=== PATIENT | female | born 1950 | race Caucasian/White ===

== ENCOUNTER 2018-10-19 06:05 | Day surgery (SDC) | payer MEDICARE ==
[2018-10-18 17:15] VITALS: BMI 34.3
[2018-10-19] MEDS ORDERED: Ondansetron ODT 4 MG TAB ONE (08:10)
--- NOTE | 2018-10-19 10:28 | OP ---
DATE OF PROCEDURE: 10/19/2018 PROCEDURES PERFORMED: Esophagogastroduodenoscopy with biopsy. PREOPERATIVE DIAGNOSES: Recurrent nausea and vomiting and chronic diarrhea. DESCRIPTION OF PROCEDURE: Informed consent was obtained from the patient. She was sedated with general anesthesia. The bite block was placed and the endoscope was advanced easily to the jejunum. The esophagus was normal. The GE junction was normal. The stomach had surgical changes consistent with an antrectomy, most likely Billroth II. There was erosive gastritis in the body of the stomach. Biopsies were obtained to rule out H. pylori. Retroflexed views in the stomach revealed a moderate amount of fibrous vegetable material in the fundus. The anastomosis was wide open. Both limbs of the small intestine were intubated and the mucosa appeared unremarkable. Small bowel biopsies were obtained to rule out celiac disease. IMPRESSION: 1. Erosive gastritis, biopsied to rule out Helicobacter pylori. 2. There was a 7 mm polyp along the anastomosis line, which likely is a granulation reaction related to the staple line or suture. Biopsy was obtained from this to rule out a neoplastic process. 3. Fibrous vegetable material in the fundus of the stomach. 4. History of antrectomy with anatomy most consistent with Billroth II anastomosis. The anastomosis is wide open. Both small bowel limbs were intubated and had unremarkable mucosa. Small bowel biopsies were obtained to rule out celiac disease. RECOMMENDATIONS: 1. Await histopathology. 2. Continue proton pump inhibitor. 3. CT scan of the abdomen and pelvis with oral and IV contrast. 4. Low-fiber diet. 5. Follow up in GI clinic. Job ID: [id number]
[2018-10-19] MEDS ORDERED: Morphine 2 MG/ML SYRINGE ONE ×2 (11:10→11:19)
[2018-10-19] MEDS ORDERED: ISOVUE-370 76%-LOCM 1 ML ONE (13:04)
[2018-10-19] MEDS ORDERED: Iopamidol 370 76% 50 ML VIAL FS ONE (13:04)
--- NOTE | 2018-10-19 13:57 | CT ---
CT OF THE ABDOMEN AND PELVIS WITH IV CONTRAST INDICATION: Status post EGD; concern for pancreatitis COMPARISON: CT abdomen pelvis dated November 06, 2016 FINDINGS: ABDOMEN: Lung bases: There is mild subsegmental atelectasis within the lingula. There are healed deformities i nvolving left posterior eighth through 11th ribs. Liver: There is diffuse fatty infiltration. Gallbladder: Surgically absent Pancreas: Mild fatty atrophy within the pancreatic head. No surrounding peripancreatic inflammatory s tranding or drainable fluid collection. Adrenal glands: There is stable mild hypertrophy of the left adrenal gland. Right adrenal glands norm al appearing. Spleen: Normal. Kidneys: Normal. Retroperitoneum of the upper abdomen: There are moderate calcific lesions involving abdominal pelvic vasculature. Pelvis: Small and large bowel: The appendix is enlarged measuring 8 mm. There is enhancement of the mucosa of the appendix. There is suggestion of mild periappendiceal fat stranding, particularly on image 63 of series 2. There is postsurgical change of a partial gastrectomy and gastroenteric anastomosis. The remaining visualized partially opacified colon and small bowel appear within normal limits. Bladder: Normal. Rectal and perirectal soft tissues:Normal. Reproductive structures: Normal. Free fluid in pelvis: No free fluid is evident. Lymphadenopathy pelvis: No lymphadenopathy is evident. Osseous structures: No acute osseous abnormality. No destructive osteolytic or osteoblastic lesion i s identified. There is scattered degenerative and osteoarthritic changes. There is stable superior endplate compression deformity of T12. IMPRESSION: 1. Enlargement of the appendix with mild periappendiceal fat stranding is suspicious for acute append icitis. Recommend correlation with the clinical exam. 2. No peripancreatic inflammatory stranding or drainable peripancreatic fluid collection demonstrated . The lack of these findings on CT does not exclude noncomplicated pancreatitis. 3. Fatty liver 4. Stable remote superior endplate compression deformity at T12 with multiple healed posterior left-s ided rib fractures. 5. Findings called to Dr. Mccormick answering service at 1:51 PM on October 19, 2018
[2018-10-19] MEDS ORDERED: PROPOFOL 200 MG/20 ML VIAL ONE (15:31)
[2018-10-19] MEDS ORDERED: Succinylcholine Chloride 20 MG/ML 10 ml SYRINGE FS ONE (15:31)
[2018-10-19] MEDS ORDERED: Lidocaine 1% PF 5 ML VIAL ONE (15:31)
[2018-10-19] MEDS ORDERED: Ondansetron PF 4 MG/2 ML Vial ONE (15:31)
== END 2018-10-19 14:00 | disposition home or self-care (01) ==
LOC: SDC 06:05
PROVIDERS: ATTEND Internal Medicine Gastroenterology
PROC: 0DB98ZZ Excision of Duodenum, Via Natural or Artificial Opening Endoscopic (ICD-10-PCS; principal; 2018-10-19)
PROC: 0DB78ZX Excision of Stomach, Pylorus, Via Natural or Artificial Opening Endoscopic, Diagnostic (ICD-10-PCS; 2018-10-19)
DX: K31.9 Disease of stomach and duodenum, unspecified (principal); K29.60 Other gastritis without bleeding; K52.9 Noninfective gastroenteritis and colitis, unspecified; K31.7 Polyp of stomach and duodenum; K76.0 Fatty (change of) liver, not elsewhere classified; K21.9 Gastro-esophageal reflux disease without esophagitis; F32.9 Major depressive disorder, single episode, unspecified; I11.0 Hypertensive heart disease with heart failure; I50.9 Heart failure, unspecified; F99 Mental disorder, not otherwise specified; K22.70 Barrett's esophagus without dysplasia; F17.210 Nicotine dependence, cigarettes, uncomplicated; J44.9 Chronic obstructive pulmonary disease, unspecified; Z79.82 Long term (current) use of aspirin; Z79.891 Long term (current) use of opiate analgesic; Z79.899 Other long term (current) drug therapy; Z88.1 Allergy status to other antibiotic agents; Z88.2 Allergy status to sulfonamides; Z88.5 Allergy status to narcotic agent; Z90.3 Acquired absence of stomach [part of]
CPT/HCPCS: 36415; 74177; 82565; 88305; 88312; 93005; 93010; J2001; J2270; J2405; J2704; Q0162; Q9966; Q9967

== ENCOUNTER 2020-03-29 00:05 | Inpatient (IN) | payer MEDICARE ==
[2020-03-29] MEDS ORDERED: Morphine 4 MG/ML VIAL ONE (00:37)
[2020-03-29] MEDS ORDERED: Ondansetron PF 4 MG/2 ML Vial ONE (00:37)
[2020-03-29] MEDS ORDERED: Ondansetron ODT 4 MG TAB SL PRN (02:30)
[2020-03-29] MEDS ORDERED: Lactated Ringer's 1,000 ML IV SCH (02:30)
[2020-03-29 02:35] VITALS: BMI 37.3
[2020-03-29] MEDS: Morphine 2 MG/ML VIAL SLOW IVP PRN ×7 (02:39→20:27)
[2020-03-29] MEDS: Ondansetron PF 4 MG/2 ML Vial IVP PRN ×4 (02:39→20:27)
[2020-03-29] MEDS ORDERED: Piperacillin/Tazobactam 4.5 GM in Sodium Chloride 0.9% 100 ML IVPB SCH (03:00)
--- NOTE | 2020-03-29 04:52 | HP ---
PRIMARY CARE PHYSICIAN: Arnoldo Lubin MD CHIEF COMPLAINT: Abdominal pain. HISTORY OF PRESENT ILLNESS: The patient is a 69-year-old female with past medical history significant for pancreatitis, hypertension, and COPD. She presented to the ER today in [place] complaining of mid epigastric abdominal pain that began shortly after eating dinner around 5 p.m. She states that she ate Fajita which she had the night before and had no difficulty with. The pain is similar to prior episodes of pancreatitis that she has had in the past. She states that she at one time was an alcoholic, but has not had a drink in over 2 years. She also had her gallbladder removed at least 15 years ago. She had recently been evaluated by Gastroenterology for pancreatic pseudocyst, which has been shrinking over the past 2 months and she is actually scheduled to have an endoscopy next week by Dr. Mccormick. The patient reports nausea with vomiting. Denies any fever, diarrhea, urinary symptoms, respiratory symptoms, or contact with sick persons. She does have a history of COPD and is oxygen dependent at home. She also takes 15 mg of oral morphine 4 times daily for pancreatitis. Her last dose was also around 5 p.m. when the pain started. In the ER at [place], she had an NG tube placed and abdominal CT completed and EKG completed and medication administered. She was given morphine 4 mg IV, Reglan 10 mg IV, Zosyn 4.5 g IV, 2 doses of Toradol 15 mg IV, vancomycin 20 mg/kg, 1 L of normal saline, and Zofran 8 mg IV. She was then transferred to the [place] ER with a diagnosis of small bowel obstruction. In the [place] ER, she had completed an abdominal x-ray and had morphine 4 mg IV, 1 L of normal saline, and Zofran 8 mg IV administered. PAST MEDICAL HISTORY: Pancreatitis, COPD, hypertension, and bipolar disorder. PAST SURGICAL HISTORY: Pancreatic surgery, tubal ligation, hysterectomy, cholecystectomy, tonsillectomy. ALLERGIES: SULFA. MEDICATIONS: Unknown at this time, we will work to have them reconciled. The patient is a poor historian. SOCIAL HISTORY: The patient lives at home with her . She denies alcohol use, although she does have a history of it. She smokes half a pack of cigarettes per day and has for 30 years. She denies any drug use. FAMILY HISTORY: Noncontributory to this admission. REVIEW OF SYSTEMS: All other review of systems are negative unless noted in HPI. PHYSICAL EXAMINATION: VITAL SIGNS: Blood pressure 151/86, pulse 78, respiratory rate 17, temperature 98.4 orally, and O2 saturation 94% on 2 L. CONSTITUTIONAL: The patient is awake, alert, and oriented x3, in mild pain distress. HEAD: Atraumatic, normocephalic. EYES: Extraocular muscles intact. PERRLA. RESPIRATORY: Lungs are clear to auscultation bilaterally. No rhonchi. No wheezes. No rales. CARDIOVASCULAR: Regular rate and rhythm. No murmurs. No rubs. No gallops. ABDOMEN: Distended, tender to palpation. Hypoactive bowel sounds. EXTREMITIES: No cyanosis. No clubbing. Posterior tibial pulse present. LABS AND IMAGING: EKG in [place] showed normal sinus rhythm, 83 beats per minute with occasional PVCs. Abdominal CT shows there is dilation of the proximal small bowel loops with a transition and nondilated more distal small bowel. This is compatible with a partial small bowel obstruction, probably on the basis of adhesions related to surgery, does show decreased size of the pancreatic pseudocyst located anterior to the pancreatic head and diffuse fatty change in the liver, which is mildly enlarged. White blood cells 16.2, platelets 372. Sodium 137, potassium 3.8, chloride 93, BUN 8, creatinine 0.82, GFR 69. Lactic acid 2.8 and then resolved to 1.4 prior to transfer. AST 44. CK 24. Negative troponin. Urine showed nothing acute. IMPRESSION AND PLAN: Small bowel obstruction. NG tube was in place at this time for low intermittent suction. Surgical consult for the morning. We will manage the patient's pain and hydrate with IV fluids throughout the night. Also manage her nausea. She is to be continued on her IV antibiotics at this time along with IV Pepcid. Still awaiting abdominal x-ray results. The patient with history of hypertension, will have p.r.n. antihypertensives available as the patient is n.p.o. at this time and unable to take her home medications. We will monitor vital signs q.4 hours. The patient does have COPD. We will continue her on oxygen. She is not needing any further oxygen than what she normally requires. We will continue to monitor and keep her comfortable. GI and DVT prophylaxis are in place. The patient wishes to be a full code. Her surrogate decision maker is her , Rodriguez Mai. The patient has been discussed with Dr. Lopez. Job ID: [id number]
[2020-03-29] MEDS: Nicotine 14 MG PATCH TD SCH (05:31)
[2020-03-29 05:52] LABS: #Basophils 0.1 thou/uL (0.0-0.2); #Lymphocytes 2.2 thou/uL (1.20-3.40); #Monocytes 0.9 thou/uL (0.11-0.59); #Neutrophils 12.3 thou/uL (1.40-6.50); %Basophils 0.3 % (0.0-1.0); %Eosinophils 0.3 % (0.0-10.0); %Lymphocytes 14.3 % (21.0-51.0); %Monocytes 5.5 % (0.0-10.0); %Neutrophils 79.6 % (42.0-75.0); Hemoglobin 12.9 g/dL (12.0-16.0); Mean Corpuscular HGB CONC 32.5 g/dL (32.0-36.0); Mean Corpuscular Hemoglobin 28.8 pg (27.0-31.0); Mean Corpuscular Volume 88.6 fL (78.0-98.0); Mean Platelet Volume 9.7 fL (7.4-10.4); Platelet Count 305 thou/uL (130-400); RBC Distribution Width 14.9 % (11.5-14.5); White Blood Cell (WBC) Count 15.5 thou/uL (4.8-10.8)
[2020-03-29 06:14] LABS: ALT (SGPT) 33 U/L (8-55); AST (SGOT) 39 U/L (5-34); Albumin 3.2 g/dL (3.4-4.8); Alkaline Phosphatase 150 U/L (40-110); Anion Gap 13 mmol/L (10-20); BUN (Urea Nitrogen) 10 mg/dL (9.8-20.1); Bilirubin, Total 0.4 mg/dL (0.2-1.2); Calc. Creatinine Clearance 94 mL/min (70-130); Calcium 8.2 mg/dL (7.8-10.44); Carbon Dioxide 27 mmol/L (23-31); Chloride 99 mmol/L (98-107); Estimated GFR-MDRD 65; Globulin 3.4 g/dL (2.4-3.5); Glucose 134 mg/dL (80-115); Magnesium 1.9 mg/dL (1.6-2.6); Potassium 4.3 mmol/L (3.5-5.1); Protein, Total 6.6 g/dL (6.0-8.3); Sodium 135 mmol/L (136-145)
[2020-03-29] MEDS: Promethazine HCl 12.5 MG in Sodium Chloride 0.9% 50 ML IVPB PRN ×2 (06:51→16:37)
[2020-03-29] MEDS ORDERED: Dextrose 5% in Water 1,000 ML IV PRN (07:32)
[2020-03-29] MEDS ORDERED: Dextrose 50% Abboject 50 ML SYRINGE SLOW IVP PRN (07:32)
[2020-03-29] MEDS ORDERED: Insulin Regular 300 UNITS/3 ML VIAL SC PRN ×2 (07:32)
[2020-03-29] MEDS ORDERED: Labetalol HCl 100 MG/20 ML VIAL SLOW IVP PRN (07:33)
--- NOTE | 2020-03-29 07:54 | RAD ---
RADIOGRAPH CHEST 1 VIEW: DATE: 03/29/2020 TIME: 12:36 AM HISTORY: 69-year-old female status post NG tube placement for small bowel obstruction COMPARISON: 01/21/2020 FINDINGS: New esophagogastric tube with side-port at expected vicinity of the EG junction. Distal tip left uppe r quadrant. Elevated right hemidiaphragm. No pneumoperitoneum. Lungs are overexposed. No gross consolidation. No cardiomegaly. IMPRESSION: Esophagogastric tube distal tip in proximal stomach
[2020-03-29] MEDS: Piperacillin/Tazobactam 3.375 GM in Sodium Chloride 0.9% 100 ML IVPB SCH ×3 (08:54→20:26)
[2020-03-29] MEDS ORDERED: Famotidine/PF 20 mg/2ml Vial SLOW IVP SCH (09:00)
[2020-03-29] MEDS: D5 1/2 NS w/20 mEq KCL 1,000 ML IV SCH (09:01)
[2020-03-29] MEDS: Pantoprazole 40 MG VIAL IVP SCH ×2 (09:01→20:51)
--- NOTE | 2020-03-29 13:49 | RAD ---
Radiograph abdomen one view supine: 03/29/2020 12:42 PM HISTORY: 69-year-old female status post advancement of NG tube. COMPARISON: 03/29/2020 12:36 AM FINDINGS: The esophagogastric tube has been advanced a distance of approximately 6.5 cm. The side-port is now o verlying the expected location of the proximal stomach, and the distal tip overlies the gastric mid body, slightly to the left of midline. There is air within a decompressed stomach. Air-filled dilated small bowel loops are noted in the lower abdomen. IMPRESSION: 1. Advancement of esophagogastric tube into the mid gastric corpus. 2. Evidence for small bowel obstruction.
[2020-03-29] MEDS ORDERED: Magnesium 2 GM/50 ML 2 GM in Premix Bag 1 BAG IVPB SCH (15:45)
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
[2020-03-29] MEDS ORDERED: Magnesium Sulfate 2 GM in Sodium Chloride 0.9% 100 ML IVPB SCH (16:00)
[2020-03-30] MEDS: Morphine 2 MG/ML VIAL SLOW IVP PRN ×9 (00:49→23:01)
[2020-03-30] MEDS: Promethazine HCl 12.5 MG in Sodium Chloride 0.9% 50 ML IVPB PRN ×2 (01:10→12:29)
[2020-03-30] MEDS: Piperacillin/Tazobactam 3.375 GM in Sodium Chloride 0.9% 100 ML IVPB SCH ×3 (01:11→14:24)
[2020-03-30] MEDS: Nicotine 14 MG PATCH TD SCH (03:45)
[2020-03-30 05:16] LABS: #Eosinphils 0.1 thou/uL (0.0-0.7); #Lymphocytes 1.7 thou/uL (1.20-3.40); #Monocytes 0.8 thou/uL (0.11-0.59); #Neutrophils 10.8 thou/uL (1.40-6.50); %Basophils 0.1 % (0.0-1.0); %Eosinophils 0.8 % (0.0-10.0); %Lymphocytes 12.8 % (21.0-51.0); %Monocytes 6.2 % (0.0-10.0); %Neutrophils 80.1 % (42.0-75.0); Hemoglobin 12.2 g/dL (12.0-16.0); Mean Corpuscular HGB CONC 32.8 g/dL (32.0-36.0); Mean Corpuscular Volume 88.2 fL (78.0-98.0); Mean Platelet Volume 9.8 fL (7.4-10.4); Platelet Count 278 thou/uL (130-400); RBC Distribution Width 14.9 % (11.5-14.5); Red Blood Cell (RBC) Count 4.22 mill/uL (4.20-5.40); White Blood Cell (WBC) Count 13.5 thou/uL (4.8-10.8)
[2020-03-30] MEDS: D5 1/2 NS w/20 mEq KCL 1,000 ML IV SCH ×4 (05:25→19:45)
[2020-03-30 05:35] LABS: ALT (SGPT) 32 U/L (8-55); AST (SGOT) 32 U/L (5-34); Alkaline Phosphatase 130 U/L (40-110); Anion Gap 14 mmol/L (10-20); BUN (Urea Nitrogen) 5 mg/dL (9.8-20.1); Bilirubin, Total 0.4 mg/dL (0.2-1.2); CRP (Inflammatory) 2.15 mg/dL (= or < 0.5); Calc. Creatinine Clearance 108 mL/min (70-130); Calcium 8.1 mg/dL (7.8-10.44); Carbon Dioxide 24 mmol/L (23-31); Chloride 102 mmol/L (98-107); Estimated GFR-MDRD 77; Globulin 3.4 g/dL (2.4-3.5); Glucose 159 mg/dL (80-115); Magnesium 2.3 mg/dL (1.6-2.6); Phosphorus 3.7 mg/dL (2.3-4.7); Potassium 4.1 mmol/L (3.5-5.1); Protein, Total 6.4 g/dL (6.0-8.3); Sodium 136 mmol/L (136-145)
[2020-03-30] MEDS: Ondansetron PF 4 MG/2 ML Vial IVP PRN ×2 (07:17→17:11)
[2020-03-30] MEDS: Pantoprazole 40 MG VIAL IVP SCH ×2 (08:54→19:46)
[2020-03-30] MEDS ORDERED: MD-Gastroview 120 ML BOT ONE (09:57)
--- NOTE | 2020-03-30 10:02 | PDOC.GSPN ---
Surgery Progress Note: Subj - Subjective Narrative: Patient is feeling much better today. Her abdominal pain and nausea have resolved and she has had multiple bowel movements through the night. Blood pressure is up but other vital signs are normal. Abdomen is soft and nontender. Bowel sounds are present. Assessment/plan: Small bowel obstruction, symptomatically improved. I am going to order a Gastrografin small bowel follow-through today. If this shows normal transit we will remove her NG tube and start her on clear liquid diet. Surgery Progress Note: Obj - Vital signs Vital signs: Vital Signs - Most Recent Temp Pulse Resp BP Pulse Ox 97.7 F 87 20 176/96 H 96 03/30/20 08:18 03/30/20 08:18 03/30/20 08:18 03/30/20 08:18 03/30/20 08:18 Surgery Progress Note: Results - Labs Result Diagrams: 03/30/20 04:57 03/30/20 04:57 Lab results: Laboratory Results - last 12 hr 03/30/20 03/30/20 03/30/20 00:34 04:57 04:57 WBC 13.5 H RBC 4.22 Hgb 12.2 Hct 37.2 MCV 88.2 MCH 29.0 MCHC 32.8 RDW 14.9 H Plt Count 278 MPV 9.8 Neutrophils % 80.1 H Lymphocytes % 12.8 L Monocytes % 6.2 Eosinophils % 0.8 Basophils % 0.1 Neutrophils # 10.8 H Lymphocytes # 1.7 Monocytes # 0.8 H Eosinophils # 0.1 Basophils # 0.0 Sodium 136 Potassium 4.1 Chloride 102 Carbon Dioxide 24 Anion Gap 14 BUN 5 L Creatinine 0.75 Estimated GFR (MDRD) 77 Glucose 159 H POC Glucose 185 H Calcium 8.1 Phosphorus 3.7 Magnesium 2.3 Total Bilirubin 0.4 AST 32 ALT 32 Alkaline Phosphatase 130 H C-Reactive Protein 2.15 H Serum Total Protein 6.4 Albumin 3.0 L Globulin 3.4 Albumin/Globulin Ratio 0.9 L 03/30/20 05:16 WBC RBC Hgb Hct MCV MCH MCHC RDW Plt Count MPV Neutrophils % Lymphocytes % Monocytes % Eosinophils % Basophils % Neutrophils # Lymphocytes # Monocytes # Eosinophils # Basophils # Sodium Potassium Chloride Carbon Dioxide Anion Gap BUN Creatinine Estimated GFR (MDRD) Glucose POC Glucose 142 H Calcium Phosphorus Magnesium Total Bilirubin AST ALT Alkaline Phosphatase C-Reactive Protein Serum Total Protein Albumin Globulin Albumin/Globulin Ratio
--- NOTE | 2020-03-30 14:05 | PDOC.HOSPP ---
- Subjective Encounter Date: 03/30/20 Encounter Time: 12:30 Subjective: Patient seen and examined for small bowel obstruction. Had multiple bowel movements last night. Abdominal pain slowly improving. Refused small bowel follow-through this morning. Denies any nausea, vomiting or fever. - Objective Vital Signs & Weight: Vital Signs (12 hours) Temp Pulse Resp BP Pulse Ox 03/30/20 13:17 97.5 F L 89 14 165/91 H 93 L 03/30/20 08:18 97.7 F 87 20 176/96 H 96 03/30/20 08:00 96 03/30/20 03:14 98.4 F 85 17 153/83 H 97 Weight Admit Weight 211 lb Weight 211 lb I&O: 03/29/20 03/30/20 03/31/20 06:59 06:59 06:59 Intake Total 850 1440 Output Total 50 900 Balance 800 540 Result Diagrams: 03/30/20 04:57 03/30/20 04:57 Additional Labs: Accuchecks 03/30/20 03/30/20 03/30/20 11:51 05:16 00:34 POC Glucose 155 H 142 H 185 H 03/29/20 17:40 POC Glucose 156 H Abnormal Lab Results - Last 48 hrs 03/29/20 05:37: Sodium 135 L, AST 39 H, Alkaline Phosphatase 150 H, Albumin 3.2 L, Albumin/Globulin Ratio 0.9 L 03/29/20 05:37: WBC 15.5 H, RDW 14.9 H, Neutrophils % 79.6 H, Lymphocytes % 14.3 L, Neutrophils # 12.3 H, Monocytes # 0.9 H 03/30/20 04:57: WBC 13.5 H, RDW 14.9 H, Neutrophils % 80.1 H, Lymphocytes % 12.8 L, Neutrophils # 10.8 H, Monocytes # 0.8 H 03/30/20 04:57: BUN 5 L, Alkaline Phosphatase 130 H, C-Reactive Protein 2.15 H, Albumin 3.0 L, Albumin/Globulin Ratio 0.9 L Radiology Reviewed by me: Yes (SHAI on admissionSBO) Hospitalist ROS - Review of Systems Respiratory: denies: cough, dry, shortness of breath, hemoptysis, SOB with excertion, pleuritic pain, sputum, wheezing, other Cardiovascular: denies: chest pain, palpitations, orthopnea, paroxysmal noc. dyspnea, edema, light headedness, other - Medication Medications: Active Medications Generic Name Dose Route Start Last Admin Trade Name Freq PRN Reason Stop Dose Admin Promethazine HCl 12.5 mg/ 50.5 mls @ 202 mls/hr 03/29/20 06:13 03/30/20 12:29 Sodium Chloride IVPB 50.5 mls Q6H PRN Administration Nausea Piperacillin Sod/Tazobactam 100 mls @ 200 mls/hr 03/29/20 08:00 03/30/20 08:50 Sod 3.375 gm/ Sodium Chloride IVPB 100 mls Q6H SUSAN Administration Potassium Chloride/Dextrose/Sod Cl 1,000 mls @ 125 mls/hr 03/29/20 07:45 03/30/20 07:21 D5 1/2 Ns W/20 Meq Kcl IV 1,000 mls .Q8H SUSAN Administration Morphine Sulfate 2 mg 03/30/20 04:24 03/30/20 11:26 Morphine 2 Mg/Ml Vial SLOW IVP 2 mg Q2H PRN Administration Pain Nicotine 14 mg 03/29/20 04:30 03/30/20 03:45 Nicotine 14 Mg Patch TD 14 mg Q24HR SUSAN Administration Ondansetron HCl 4 mg 03/30/20 04:26 03/30/20 07:17 Ondansetron Pf 4 Mg/2 Ml Vial IVP 4 mg Q6H PRN Administration Nausea/Vomiting Pantoprazole Sodium 40 mg 03/29/20 09:00 03/30/20 08:54 Pantoprazole 40 Mg Vial IVP 40 mg Q12HR SUSAN Administration - Exam General - other findings: Mild distress due to abdominal discomfort Neck: supple, no JVD Heart: RRR, no gallops Respiratory: no wheezes, no ronchi, normal chest expansion Gastrointestinal: soft, normal bowel sounds, no guarding, no rigidity Gastrointestinal - other findings: Mild generalized tendernessmoderate Extremities: no cyanosis, no clubbing Neurological: no new deficit Psychiatric: normal affect, A&O x 3 Hosp A/P - Plan DVT proph w/SCDs 69-year-old female with presented to the emergency room on 03/29 with worsening abdominal pain. Her work-up was consistent with small bowel obstruction. NG tube was placed. #Small bowel obstructionlikely due to a adhesions Continue NG tube suction. Patient refused small bowel follow-through this morning. Continue IV fluids and n.p.o. will discontinue IV Zosyn #Systemic inflammatory response syndrome secondary to above #Lactic acidosissecondary to dehydration #Hypomagnesemiareplaced #Hypertension Continue to monitor #Hyponatremia Continue to monitor #History of chronic pancreatitis with pancreatic pseudocyst #COPD with ongoing tobacco abuse Counseled to quit smoking #History of alcohol abuse #History of gastrojejunostomy with a Billroth type procedure in the past #Obesity with a BMI 37.4 Lifestyle modification emphasized #CKD stage II DVT prophylaxis Add heparin subacute twice daily GI prophylaxis Continue PPIs #All other issues per H&P
--- NOTE | 2020-03-30 14:58 | RAD ---
SMALL BOWEL SERIES: Date: 03/30/2020 HISTORY: Small bowel obstruction. FINDINGS: A small bowel series was initiated after instillation of Gastrografin via a nasogastric tube into the stomach. The patient refused continuing with the exam after 30 minutes. Contrast passes from the stomach into dilated loops of small bowel in the left lower quadrant by 30 m inutes. IMPRESSION: Nondiagnostic exam. POS: OFF
--- NOTE | 2020-03-30 16:36 | RAD ---
EXAM: Supine abdomen: One view INDICATIONS: Small bowel obstruction COMPARISON: 03/29/2020 FINDINGS: NG tube passes through the EG junction and overlies the mid gastric fundus. Contrast is see n within the transverse colon. Contrast in the distal small bowel overlying the pelvis shows normal small bowel lumen. There are dilated gas-filled loops of small bowel in the upper abdomen which maico nued indicate small bowel obstruction. IMPRESSION: Persisting gas-filled dilated loops of small bowel in the upper left abdomen. Contrast in the distal small bowel shows normal small bowel loops and there is scattered contrast in the colon.
[2020-03-30] MEDS ORDERED: Lorazepam 2 MG/ML VIAL SLOW IVP PRN (18:58)
[2020-03-30] MEDS: Lorazepam 2 MG/ML VIAL SLOW IVP SCH (19:45)
[2020-03-30] MEDS: Labetalol HCl 100 MG/20 ML VIAL SLOW IVP SCH (19:46)
[2020-03-31] MEDS: Ondansetron PF 4 MG/2 ML Vial IVP PRN ×2 (00:24→08:00)
[2020-03-31] MEDS: Morphine 4 MG/ML VIAL SLOW IVP PRN ×4 (00:47→12:48)
[2020-03-31] MEDS: D5 1/2 NS w/20 mEq KCL 1,000 ML IV SCH ×2 (03:52→17:03)
[2020-03-31] MEDS: Nicotine 14 MG PATCH TD SCH (04:33)
[2020-03-31] MEDS: Promethazine HCl 12.5 MG in Sodium Chloride 0.9% 50 ML IVPB PRN ×2 (04:33→11:47)
[2020-03-31] MEDS: Labetalol HCl 100 MG/20 ML VIAL SLOW IVP SCH ×3 (04:48→20:15)
[2020-03-31 05:55] LABS: #Eosinphils 0.1 thou/uL (0.0-0.7); #Lymphocytes 1.5 thou/uL (1.20-3.40); #Monocytes 0.7 thou/uL (0.11-0.59); #Neutrophils 6.9 thou/uL (1.40-6.50); %Basophils 0.4 % (0.0-1.0); %Eosinophils 1.3 % (0.0-10.0); %Lymphocytes 15.9 % (21.0-51.0); %Monocytes 7.7 % (0.0-10.0); %Neutrophils 74.8 % (42.0-75.0); Hemoglobin 11.3 g/dL (12.0-16.0); Mean Corpuscular HGB CONC 32.5 g/dL (32.0-36.0); Mean Corpuscular Hemoglobin 28.8 pg (27.0-31.0); Mean Corpuscular Volume 88.6 fL (78.0-98.0); Mean Platelet Volume 9.9 fL (7.4-10.4); Platelet Count 224 thou/uL (130-400); RBC Distribution Width 14.9 % (11.5-14.5); Red Blood Cell (RBC) Count 3.92 mill/uL (4.20-5.40); White Blood Cell (WBC) Count 9.2 thou/uL (4.8-10.8)
[2020-03-31 06:27] LABS: ALT (SGPT) 27 U/L (8-55); AST (SGOT) 28 U/L (5-34); Albumin 2.9 g/dL (3.4-4.8); Alkaline Phosphatase 109 U/L (40-110); Anion Gap 12 mmol/L (10-20); BUN (Urea Nitrogen) 4 mg/dL (9.8-20.1); Bilirubin, Total 0.3 mg/dL (0.2-1.2); Calc. Creatinine Clearance 120 mL/min (70-130); Calcium 8.1 mg/dL (7.8-10.44); Carbon Dioxide 26 mmol/L (23-31); Chloride 106 mmol/L (98-107); Estimated GFR-MDRD 86; Glucose 124 mg/dL (80-115); Magnesium 2.2 mg/dL (1.6-2.6); Phosphorus 4.4 mg/dL (2.3-4.7); Potassium 3.8 mmol/L (3.5-5.1); Protein, Total 5.9 g/dL (6.0-8.3); Sodium 140 mmol/L (136-145)
[2020-03-31] MEDS: Pantoprazole 40 MG VIAL IVP SCH (08:00)
[2020-03-31] MEDS: Lorazepam 2 MG/ML VIAL SLOW IVP SCH (08:01)
--- NOTE | 2020-03-31 12:46 | RAD ---
TWO VIEWS ABDOMEN: DATE: 03/31/2020. PROVIDED CLINICAL HISTORY: Small bowel obstruction. FINDINGS: Comparison 03/30/2020. There is contrast material noted within the colon and rectum regions. There are occasionally gaseous dilated loops of small bowel, predominating in the left lower quadrant and a ppearing similar to prior. There is no evidence for pneumoperitoneum. IMPRESSION: Similar exam. POS: JAYESH
[2020-03-31] MEDS ORDERED: Ondansetron ODT 4 MG TAB PO PRN ×2 (15:10→17:29)
[2020-03-31] MEDS ORDERED: D5 1/2 NS w/20 mEq KCL 1,000 ML IV SCH (15:14)
--- NOTE | 2020-03-31 16:31 | PRG ---
DATE OF SERVICE: 03/31/2020 SUBJECTIVE: Ms. Dale yesterday refused to complete her small-bowel follow-through and insisted her NG tube being placed back to suction. Contrast was administered, but the study was noninformative due to replacement of NG tube back to suction so early. She had 1300 mL drainage from her NG tube. She reports having bowel movements and passing gas since that time. She reports chronic nausea, which she states she has all the time due to her chronic pancreatitis. Abdominal x-rays this morning reveal contrast in her colon and rectum and some mildly dilated loops of small bowel. The patient wants to eat. She wants to go home. OBJECTIVE: LUNGS: Clear to auscultation. CARDIAC: Regular rhythm. No murmur or gallop. ABDOMEN: Obese. Scars per extensive surgical history. Slight tympany, distention plus bowel movements. No guarding. VITAL SIGNS: Temperature 98.2, blood pressure 183/82. LABORATORY DATA: White count 9, hemoglobin . Basic metabolic profile normal. ASSESSMENT/PLAN: Partial bowel obstruction, possibly. We would recommend a regular diet as the patient is uncooperative with evaluations. Would give her a diabetic diet and if she cannot tolerate this, we will have further discussions with her about intervention which could include operative intervention and/or small-bowel follow-through. Await thoughts of GI. Repeat abdominal x-rays in the morning. Job ID: [id number]
[2020-03-31] MEDS ORDERED: PROTEASE PO SCH (17:00)
[2020-03-31] MEDS ORDERED: [UNRECOGNIZED DRUG - OTHER] PO SCH (17:00)
[2020-03-31] MEDS ORDERED: LIPASE PO SCH (17:00)
[2020-03-31] MEDS ORDERED: AMYLASE PO SCH (17:00)
[2020-03-31] MEDS: Morphine IR Tab 15 MG TAB PO PRN ×2 (17:06→23:30)
[2020-03-31] MEDS ORDERED: Metoclopramide HCl 10 MG TAB PO PRN (17:07)
[2020-03-31] MEDS ORDERED: Pancrelipase DR 12,000 1 CAP PO SCH (17:45)
[2020-03-31] MEDS: Magnesium Oxide 400 MG TAB PO SCH (20:14)
[2020-03-31] MEDS: Carvedilol 6.25 MG TAB PO SCH (20:15)
[2020-03-31] MEDS: Lorazepam 1 MG TAB PO SCH (20:15)
--- NOTE | 2020-03-31 20:40 | PDOC.HOSPP ---
- Subjective Encounter Date: 03/31/20 Encounter Time: 14:30 Subjective: Patient seen and examined for small bowel obstruction. Abdominal discomfort improving. Patient pulled her NG tube last night. Denies any nausea or vomiting. No fever or chills reported. - Objective Vital Signs & Weight: Vital Signs (12 hours) Temp Pulse Resp BP BP BP Pulse Ox 03/31/20 20:15 70 162/89 H 03/31/20 16:22 168/79 H 03/31/20 15:10 97.6 F 70 20 171/76 H 97 03/31/20 13:15 160/80 H 03/31/20 12:07 75 183/82 H 03/31/20 11:54 98.2 F 75 18 183/82 H 96 Weight Admit Weight 211 lb Weight 211 lb I&O: 03/30/20 03/31/20 04/01/20 06:59 06:59 06:59 Intake Total 1440 1250 Output Total 900 1300 Balance 540 -50 Result Diagrams: 03/31/20 05:16 03/31/20 05:16 Additional Labs: Accuchecks 03/31/20 03/31/20 11:59 05:34 POC Glucose 117 H 117 H Radiology Reviewed by me: Yes (KUB reviewed) Hospitalist ROS - Review of Systems Respiratory: denies: cough, dry, shortness of breath, hemoptysis, SOB with excertion, pleuritic pain, sputum, wheezing, other Cardiovascular: denies: chest pain, palpitations, orthopnea, paroxysmal noc. dyspnea, edema, light headedness, other - Medication Medications: Active Medications Generic Name Dose Route Start Last Admin Trade Name Freq PRN Reason Stop Dose Admin Carvedilol 6.25 mg 03/31/20 21:00 03/31/20 20:15 Carvedilol 6.25 Mg Tab PO 6.25 mg BID SUSAN Administration Citalopram Hydrobromide 40 mg 03/31/20 21:00 03/31/20 20:14 Citalopram 20 Mg Tab PO 40 mg HS SUSAN Administration Promethazine HCl 12.5 mg/ 50.5 mls @ 202 mls/hr 03/29/20 06:13 03/31/20 11:47 Sodium Chloride IVPB 50.5 mls Q6H PRN Administration Nausea Lorazepam 1 mg 03/31/20 21:00 03/31/20 20:15 Lorazepam 1 Mg Tab PO 1 mg BID SUSAN Administration Magnesium Oxide 400 mg 03/31/20 21:00 03/31/20 20:14 Magnesium Oxide 400 Mg Tab PO 400 mg BID SUSAN Administration Morphine Sulfate 4 mg 03/30/20 23:11 03/31/20 12:48 Morphine 4 Mg/Ml Vial SLOW IVP 4 mg Q4H PRN Administration Severe Pain (7-10) Morphine Sulfate 15 mg 03/31/20 16:50 03/31/20 17:06 Morphine Ir Tab 15 Mg Tab PO 15 mg QID PRN Administration Moderate to Severe Pain (6-10) Nicotine 14 mg 03/29/20 04:30 03/31/20 04:33 Nicotine 14 Mg Patch TD 14 mg Q24HR SUSAN Administration Ondansetron HCl 4 mg 03/30/20 04:26 03/31/20 08:00 Ondansetron Pf 4 Mg/2 Ml Vial IVP 4 mg Q6H PRN Administration Nausea/Vomiting Ondansetron HCl 4 mg 03/31/20 17:29 03/31/20 18:33 Ondansetron Odt 4 Mg Tab PO 4 mg Q6H PRN Administration Nausea - Exam General Appearance: NAD Neck: supple Heart: RRR, no gallops Respiratory: no wheezes, no ronchi Gastrointestinal: soft, no guarding, no rigidity Gastrointestinal - other findings: Mild tenderness tenderness Extremities: no cyanosis Hosp A/P - Plan 69-year-old female with presented to the emergency room on 03/29 with worsening abdominal pain. Her work-up was consistent with small bowel obstruction. NG tube was placed. #Small bowel obstructionlikely due to a adhesions. 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 Patient pulled NG tube last night. Abdominal pain improving. Resume home pain medications. Resume carvedilol and lisinopril. Recheck labs in a.m. Change PPI to po.Continue other medications as above
[2020-03-31] MEDS ORDERED: diphenhydrAMINE 25 MG CAP PO PRN (20:57)
[2020-03-31] MEDS ORDERED: Citalopram 20 MG TAB PO SCH (21:00)
[2020-04-01] MEDS: Nicotine 14 MG PATCH TD SCH (04:55)
[2020-04-01] MEDS: Morphine IR Tab 15 MG TAB PO PRN ×2 (05:33→11:37)
[2020-04-01 06:28] LABS: ALT (SGPT) 33 U/L (8-55); AST (SGOT) 39 U/L (5-34); Alkaline Phosphatase 108 U/L (40-110); Anion Gap 11 mmol/L (10-20); BUN (Urea Nitrogen) Less than 4 mg/dL (9.8-20.1); Bilirubin, Total 0.3 mg/dL (0.2-1.2); Calc. Creatinine Clearance 113 mL/min (70-130); Calcium 8.3 mg/dL (7.8-10.44); Carbon Dioxide 27 mmol/L (23-31); Chloride 105 mmol/L (98-107); Estimated GFR-MDRD 81; Glucose 92 mg/dL (80-115); Magnesium 2.2 mg/dL (1.6-2.6); Phosphorus 4.6 mg/dL (2.3-4.7); Sodium 139 mmol/L (136-145)
[2020-04-01] MEDS: Pancrelipase DR 12,000 1 CAP PO SCH ×2 (08:36→12:42)
[2020-04-01] MEDS: Carvedilol 6.25 MG TAB PO SCH (08:36)
[2020-04-01] MEDS: Lorazepam 1 MG TAB PO SCH (08:36)
[2020-04-01] MEDS: Magnesium Oxide 400 MG TAB PO SCH (08:36)
[2020-04-01] MEDS ORDERED: Furosemide 40 MG TAB PO SCH (09:00)
[2020-04-01] MEDS ORDERED: Lisinopril 10 MG TAB PO SCH (09:00)
[2020-04-01] MEDS ORDERED: Triamcinolone 0.1% Cream 15 GM TUBE TOP SCH (09:00)
[2020-04-01] MEDS ORDERED: Potassium Chloride 20 MEQ TAB PO SCH (09:00)
[2020-04-01] MEDS ORDERED: Aspirin Chewable 81 MG TAB PO SCH (09:00)
--- NOTE | 2020-04-01 11:43 | RAD ---
TWO VIEWS ABDOMEN: DATE: 04/01/2020. PROVIDED CLINICAL HISTORY: Small bowel obstruction. FINDINGS: Comparison 03/31/2020. There is no evidence for pneumoperitoneum. Persistent small bowel dilatation . Significant interval change with respect to the prior study is not apparent. IMPRESSION: As above. POS: JAYESH
[2020-04-01 17:00] VITALS: BP 154/82; TEMP 98
--- NOTE | 2020-04-03 15:54 | DIS ---
DATE OF ADMISSION: 03/29/2020 DATE OF DISCHARGE: 04/01/2020 DISCHARGE DISPOSITION: Home. FOLLOWUP: 1. Follow up with primary care physician, Dr. Lubin in 1 week. 2. Follow up with General Surgery, Dr. Martinez in 1 to 2 weeks. DISCHARGE MEDICATIONS: Same as admission medications. Patient was seen and examined on the day of discharge. Denies any new complaints. No chest pain, shortness of breath, palpitations, nausea, or vomiting reported. The patient is tolerating regular diet. INPATIENT [facility]ER: General Surgery, Dr. Martinez. BRIEF HOSPITAL COURSE: The patient is a 69-year-old female with gastrojejunostomy with Billroth type procedure in the past, presented to the hospital with abdominal discomfort. Her workup was consistent with small-bowel obstruction. She was managed conservatively with NG tube, n.p.o. status with IV fluids. Empiric antibiotics were initially started for leukocytosis and was eventually discontinued. The patient was evaluated by General Surgery. The patient underwent small-bowel follow-through. However, she was unable to complete small-bowel follow-through due to worsening abdominal discomfort. The patient also had several bowel movements spontaneously. She pulled out NG tube herself. She was started on clear liquid diet and was transitioned to regular diet. The patient has been cleared by General Surgery for discharge. FINAL DIAGNOSES: 1. Small-bowel obstruction, likely due to adhesions. 2. Systemic inflammatory response syndrome secondary to above. 3. Lactic acidosis secondary to dehydration, resolved. 4. Hypomagnesemia, replaced. 5. Hypertension. 6. Hyponatremia. 7. History of chronic pancreatitis with pancreatic pseudocyst. 8. Chronic obstructive pulmonary disease with ongoing tobacco abuse. 9. History of alcohol abuse. 10. Obesity with a BMI of 37.4. 11. Chronic kidney disease, stage 2. 12. History of gastrojejunostomy with Billroth type pathology. 13. The patient understands the above plan of care. Job ID: [id number]
== END 2020-04-01 17:01 | disposition home or self-care (01) | DRG 389 ==
LOC: ERS 00:05 → SURG B 02:26 → OBSVTOIN 07:29
PROVIDERS: ADMIT Internal Medicine; ATTEND Internal Medicine
DX: K56.609 Unspecified intestinal obstruction, unspecified as to partial versus complete obstruction (principal); K86.1 Other chronic pancreatitis; I13.0 Hypertensive heart and chronic kidney disease with heart failure and stage 1 through stage 4 chronic kidney disease, or unspecified chronic kidney disease; K86.3 Pseudocyst of pancreas; F11.20 Opioid dependence, uncomplicated; R65.10 Systemic inflammatory response syndrome (SIRS) of non-infectious origin without acute organ dysfunction; E87.2 Acidosis; E87.1 Hypo-osmolality and hyponatremia; I49.3 Ventricular premature depolarization; J44.9 Chronic obstructive pulmonary disease, unspecified; F31.9 Bipolar disorder, unspecified; F17.210 Nicotine dependence, cigarettes, uncomplicated; I50.9 Heart failure, unspecified; E86.0 Dehydration; E83.42 Hypomagnesemia; E66.9 Obesity, unspecified; Z68.37 Body mass index [BMI] 37.0-37.9, adult; N18.2 Chronic kidney disease, stage 2 (mild); Z98.51 Tubal ligation status; Z90.710 Acquired absence of both cervix and uterus; Z90.49 Acquired absence of other specified parts of digestive tract; Z88.2 Allergy status to sulfonamides
CPT/HCPCS: 36415; 36416; 74018; 74019; 74250; 80053; 83735; 84100; 85025; 86140; 96365; 96374; 96375; 96376; C9113; G0378; J2060; J2270; J2405; J2543; J2550; J3475; J3480; J3490; Q0162; Q0163; Q9963

== ENCOUNTER 2021-04-24 08:18 | Inpatient (IN) | payer MEDICARE ==
[2021-04-24] MEDS ORDERED: Propofol 1,000 MG/100 ML VIAL IV ONE ×3 (08:27→13:50)
[2021-04-24] MEDS ORDERED: Norepinephrine 8 MG/0.9% NS 250 ML ONE (08:27)
[2021-04-24] MEDS ORDERED: Fentanyl 100 MCG/2 ML VIAL ONE (08:29)
[2021-04-24] MEDS ORDERED: fentaNYL Citrate/PF 2,000 MCG in Sodium Chloride 0.9% 60 ML IV SCH (09:00)
[2021-04-24] MEDS ORDERED: Albuterol Sulfate 2.5 mg/3 ml Neb ONE (09:06)
[2021-04-24 10:06] LABS: Actual Bicarbonate (HCO3a) 31.1 mEq/L (22-28); Analyzer IN Cardio ER; Base Excess (BEa) 4.1 mEq/L (-2.0 to +3.0); CO2 Tension 57.8 mmHg (35.0-45.0); Calcium, Ionized (arterial) 0.99 mmol/L (1.12-1.30); Carboxyhemoglobin (COHb) 1.3 gm% (0.0-3.0); Hemoglobin (Hb) 12.1 g/dL (12.0-16.0); O2 Tension (PaO2), arterial 61.7 mmHg (> 80.0); Potassium - ABG Lab 3.65 mmol/L (3.70-5.30); pH, Arterial 7.35 (7.35-7.45)
[2021-04-24 10:08] LABS: Puncture Site RRA
[2021-04-24] MEDS ORDERED: Norepinephrine 8 MG/0.9% NS 250 ML IVPB PRN (11:24)
[2021-04-24] MEDS ORDERED: Sodium Chloride 0.9% 1,000 ML IV SCH ×2 (11:30→15:45)
[2021-04-24] MEDS ORDERED: ABX IVPB PRN (11:46)
[2021-04-24] MEDS ORDERED: Fentanyl CADD 100 ML ONE (13:51)
[2021-04-24] MEDS ORDERED: Meropenem 1 GM in Sodium Chloride 0.9% 100 ML IVPB SCH (14:00)
[2021-04-24] MEDS: Sodium Chloride 0.9% 1,000 ML IV SCH (14:01)
[2021-04-24 14:09] LABS: ALT (SGPT) 36 U/L (8-55); AST (SGOT) 32 U/L (5-34); Albumin 3.3 g/dL (3.4-4.8); Alkaline Phosphatase 128 U/L (40-110); Anion Gap 16 mmol/L (10-20); BUN (Urea Nitrogen) 31 mg/dL (9.8-20.1); Bilirubin, Total 0.3 mg/dL (0.2-1.2); Calc. Creatinine Clearance 0 mL/min (70-130); Calcium 7.9 mg/dL (7.8-10.44); Carbon Dioxide 28 mmol/L (23-31); Chloride 97 mmol/L (98-107); Globulin 3.1 g/dL (2.4-3.5); Glucose 189 mg/dL (80-115); Potassium 4.1 mmol/L (3.5-5.1); Protein, Total 6.4 g/dL (5.8-8.1); Sodium 137 mmol/L (136-145)
[2021-04-24] MEDS ORDERED: MEROPENEM 1 GM/50 ML 1 GM in Premix Bag 1 BAG IVPB SCH (14:30)
[2021-04-24] MEDS ORDERED: Fentanyl BOLUS 250 ML IVPB PRN (14:30)
[2021-04-24] MEDS ORDERED: Morphine 2 MG/ML VIAL SLOW IVP PRN (14:30)
[2021-04-24] MEDS: Lorazepam 2 MG/ML VIAL SLOW IVP PRN (15:06)
[2021-04-24 15:19] LABS: Bilirubin Negative (Negative); Blood, Urine Negative (Negative); Glucose, Urine (Dipstick) Negative (Negative); Ketone, Urine Negative (Negative); Leukocyte Trace (Negative); Nitrite Negative (Negative); Protein, Urine (Dipstick) Negative (Neg-Trace); Specific Gravity, Urine 1.015 (1.005-1.030); Urobilinogen 0.2 mg/dL (Less than 2); pH, Urine 5.5 (5.0-9.0)
[2021-04-24 15:22] LABS: Clarity Hazy (Clear)
[2021-04-24 15:24] LABS: RBC/HPF 0-3 HPF (0-3); Squamous Epithelial 0-3 HPF (0-3)
[2021-04-24 15:26] LABS: Creatinine, Urine 105.72 mg/dL (47-110); Potassium, Urine 28.3 mmol/L; Sodium, Urine Less than 20 mmol/L (Not Available)
[2021-04-24] MEDS: Vancomycin 1.5 GRAM/300 ML BAG 1.5 GM in Premix Bag 1 BAG IVPB SCH (15:39)
[2021-04-24 15:41] LABS: Bacteria/HPF None Seen HPF (None Seen)
[2021-04-24] MEDS: Hydrocortisone Sod Succ/PF 100 mg/2 ml Vial IVP SCH ×2 (15:41→20:01)
[2021-04-24] MEDS: Propofol 1,000 MG/100 ML VIAL IV PRN ×3 (15:41→23:20)
[2021-04-24 15:43] LABS: Urine Culture Reflex Yes Yes
[2021-04-24] MEDS: MEROPENEM 1 GM/50 ML 1 GM in Premix Bag 1 BAG IVPB SCH (22:16)
[2021-04-25] MEDS ORDERED: Fentanyl CADD 100 ML ONE ×2 (00:03→10:15)
[2021-04-25] MEDS: Fentanyl CADD 100 ML IV SCH ×3 (00:08→20:15)
[2021-04-25] MEDS: Propofol 1,000 MG/100 ML VIAL IV PRN ×8 (02:07→21:14)
[2021-04-25] MEDS: Sodium Chloride 0.9% 1,000 ML IV SCH ×2 (02:09→15:37)
[2021-04-25] MEDS: Hydrocortisone Sod Succ/PF 100 mg/2 ml Vial IVP SCH ×4 (04:01→20:13)
[2021-04-25 04:35] LABS: ALT (SGPT) 28 U/L (8-55); AST (SGOT) 22 U/L (5-34); Alkaline Phosphatase 105 U/L (40-110); Anion Gap 12 mmol/L (10-20); BUN (Urea Nitrogen) 20 mg/dL (9.8-20.1); Bilirubin, Total 0.2 mg/dL (0.2-1.2); Calc. Creatinine Clearance 106 mL/min (70-130); Calcium 8.2 mg/dL (7.8-10.44); Carbon Dioxide 32 mmol/L (23-31); Chloride 100 mmol/L (98-107); Glucose 164 mg/dL (80-115); Sodium 140 mmol/L (136-145)
[2021-04-25 04:46] LABS: Band 1 % (5-11); Hemoglobin 10.3 g/dL (12.0-16.0); Lymphocytes 9 % (21-51); MDiff Complete? YES; Mean Corpuscular HGB CONC 31.4 g/dL (32.0-36.0); Mean Corpuscular Volume 85.9 fL (78.0-98.0); Mean Platelet Volume 8.5 fL (7.4-10.4); Monocytes 8 % (0-10); Neutrophil 82 % (42-75); Platelet Count 246 thou/uL (130-400); RBC Distribution Width 14.9 % (11.5-14.5); Red Blood Cell (RBC) Count 3.82 mill/uL (4.20-5.40); White Blood Cell (WBC) Count 9.7 thou/uL (4.8-10.8)
[2021-04-25] MEDS: MEROPENEM 1 GM/50 ML 1 GM in Premix Bag 1 BAG IVPB SCH ×3 (05:25→22:06)
[2021-04-25 06:56] LABS: Actual Bicarbonate (HCO3a) 32.2 mEq/L (22-28); CO2 Tension 43.5 mmHg (35.0-45.0); Calcium, Ionized (arterial) 1.07 mmol/L (1.12-1.30); Carboxyhemoglobin (COHb) 0.4 gm% (0.0-3.0); Potassium - ABG Lab 4.18 mmol/L (3.70-5.30); pH, Arterial 7.49 (7.35-7.45)
[2021-04-25 06:57] LABS: O2 Tension (PaO2), arterial 49.9 mmHg (> 80.0)
[2021-04-25] MEDS ORDERED: Famotidine/PF 20 mg/2ml Vial SLOW IVP SCH (09:15)
[2021-04-25] MEDS ORDERED: Nicotine 21 MG PATCH TD SCH (15:15)
[2021-04-25] MEDS: Vancomycin 1.5 GRAM/300 ML BAG 1.5 GM in Premix Bag 1 BAG IVPB SCH (15:43)
[2021-04-25] MEDS: Famotidine/PF 20 mg/2ml Vial SLOW IVP SCH (20:13)
[2021-04-25] MEDS: Propofol BOLUS 1,000 MG/100 ML VIAL IV PRN (21:41)
[2021-04-26] MEDS: Lorazepam 2 MG/ML VIAL SLOW IVP PRN ×4 (00:42→14:46)
[2021-04-26] MEDS: Propofol 1,000 MG/100 ML VIAL IV PRN ×6 (00:43→20:00)
[2021-04-26] MEDS: Propofol BOLUS 1,000 MG/100 ML VIAL IV PRN (01:01)
[2021-04-26] MEDS: Hydrocortisone Sod Succ/PF 100 mg/2 ml Vial IVP SCH ×3 (03:31→21:05)
[2021-04-26 04:48] LABS: ALT (SGPT) 22 U/L (8-55); AST (SGOT) 14 U/L (5-34); Albumin 2.9 g/dL (3.4-4.8); Alkaline Phosphatase 89 U/L (40-110); Anion Gap 11 mmol/L (10-20); BUN (Urea Nitrogen) 17 mg/dL (9.8-20.1); Bilirubin, Total 0.2 mg/dL (0.2-1.2); Calc. Creatinine Clearance 123 mL/min (70-130); Calcium 7.9 mg/dL (7.8-10.44); Carbon Dioxide 30 mmol/L (23-31); Chloride 104 mmol/L (98-107); Globulin 2.9 g/dL (2.4-3.5); Glucose 149 mg/dL (80-115); Potassium 3.7 mmol/L (3.5-5.1); Protein, Total 5.8 g/dL (5.8-8.1); Sodium 141 mmol/L (136-145)
[2021-04-26 04:51] LABS: Band 3 % (5-11); Hemoglobin 9.7 g/dL (12.0-16.0); Lymphocytes 20 % (21-51); MDiff Complete? YES; Mean Corpuscular HGB CONC 31.9 g/dL (32.0-36.0); Mean Corpuscular Hemoglobin 27.5 pg (27.0-31.0); Mean Corpuscular Volume 86.1 fL (78.0-98.0); Mean Platelet Volume 8.8 fL (7.4-10.4); Monocytes 4 % (0-10); Neutrophil 72 % (42-75); Platelet Count 228 thou/uL (130-400); Platelet Morphology Comment Appears Adequate; Polychromasia SLIGHT = 2-3 cells (100X) (0-2/hpf); RBC Distribution Width 15.2 % (11.5-14.5); Reactive Lymphocytes 1 % (0-10); Red Blood Cell (RBC) Count 3.53 mill/uL (4.20-5.40); White Blood Cell (WBC) Count 8.1 thou/uL (4.8-10.8)
[2021-04-26] MEDS ORDERED: Fentanyl CADD 100 ML ONE ×2 (05:21→15:46)
[2021-04-26] MEDS: MEROPENEM 1 GM/50 ML 1 GM in Premix Bag 1 BAG IVPB SCH ×3 (05:29→21:11)
[2021-04-26] MEDS: Sodium Chloride 0.9% 1,000 ML IV SCH ×2 (05:30→18:28)
[2021-04-26] MEDS: Nicotine 21 MG PATCH TD SCH (08:23)
[2021-04-26] MEDS: Famotidine/PF 20 mg/2ml Vial SLOW IVP SCH ×2 (08:23→21:06)
[2021-04-26] MEDS ORDERED: Nicotine 21 MG PATCH TD SCH (09:00)
[2021-04-26] MEDS: Vancomycin 1.5 GRAM/300 ML BAG 1.5 GM in Premix Bag 1 BAG IVPB SCH (14:37)
[2021-04-26 15:04] LABS: Vancomycin, Trough 7.8 ug/mL
[2021-04-27] MEDS ORDERED: Fentanyl CADD 100 ML ONE ×2 (01:12→10:53)
[2021-04-27] MEDS: Fentanyl CADD 100 ML IV SCH ×2 (01:48→10:54)
[2021-04-27] MEDS: Propofol 1,000 MG/100 ML VIAL IV PRN ×4 (01:53→10:50)
[2021-04-27] MEDS ORDERED: Vancomycin 1 GM in Premix Bag 1 BAG IVPB SCH (03:00)
[2021-04-27] MEDS: Hydrocortisone Sod Succ/PF 100 mg/2 ml Vial IVP SCH ×2 (04:00→10:50)
[2021-04-27 04:55] LABS: Hemoglobin 9.6 g/dL (12.0-16.0); Hypochromia SLIGHT = 6-15 cells (100X) (0-5/hpf); Lymphocytes 25 % (21-51); MDiff Complete? YES; Mean Corpuscular HGB CONC 31.6 g/dL (32.0-36.0); Mean Corpuscular Volume 85.5 fL (78.0-98.0); Monocytes 2 % (0-10); Neutrophil 73 % (42-75); Platelet Count 231 thou/uL (130-400); Platelet Morphology Comment Appears Adequate; RBC Distribution Width 15.3 % (11.5-14.5); Red Blood Cell (RBC) Count 3.54 mill/uL (4.20-5.40); White Blood Cell (WBC) Count 7.4 thou/uL (4.8-10.8)
[2021-04-27 05:09] LABS: ALT (SGPT) 31 U/L (8-55); AST (SGOT) 32 U/L (5-34); Albumin 2.8 g/dL (3.4-4.8); Alkaline Phosphatase 78 U/L (40-110); Anion Gap 10 mmol/L (10-20); BUN (Urea Nitrogen) 18 mg/dL (9.8-20.1); Bilirubin, Total 0.2 mg/dL (0.2-1.2); Calc. Creatinine Clearance 140 mL/min (70-130); Calcium 8.2 mg/dL (7.8-10.44); Carbon Dioxide 28 mmol/L (23-31); Chloride 108 mmol/L (98-107); Globulin 2.8 g/dL (2.4-3.5); Glucose 123 mg/dL (80-115); Potassium 3.8 mmol/L (3.5-5.1); Protein, Total 5.6 g/dL (5.8-8.1); Sodium 142 mmol/L (136-145)
[2021-04-27] MEDS: MEROPENEM 1 GM/50 ML 1 GM in Premix Bag 1 BAG IVPB SCH ×3 (06:15→21:35)
[2021-04-27 06:54] LABS: Actual Bicarbonate (HCO3a) 26.1 mEq/L (22-28); Base Excess (BEa) 2.8 mEq/L (-2.0 to +3.0); Carboxyhemoglobin (COHb) 0.7 gm% (0.0-3.0); Hemoglobin (Hb) 9.4 g/dL (12.0-16.0); O2 Tension (PaO2), arterial 84.8 mmHg (> 80.0); pH, Arterial 7.49 (7.35-7.45)
[2021-04-27 07:17] LABS: Puncture Site RRA
[2021-04-27] MEDS: Nicotine 21 MG PATCH TD SCH (08:01)
[2021-04-27] MEDS: Famotidine/PF 20 mg/2ml Vial SLOW IVP SCH ×2 (08:01→21:35)
[2021-04-27] MEDS: Sodium Chloride 0.9% 1,000 ML IV SCH ×2 (08:01→22:24)
[2021-04-27] MEDS: Lorazepam 2 MG/ML VIAL SLOW IVP PRN (08:45)
[2021-04-27 13:14] LABS: Actual Bicarbonate (HCO3a) 26.4 mEq/L (22-28); Base Excess (BEa) 2.4 mEq/L (-2.0 to +3.0); CO2 Tension 38.3 mmHg (35.0-45.0); Calcium, Ionized (arterial) 1.12 mmol/L (1.12-1.30); Carboxyhemoglobin (COHb) 0.3 gm% (0.0-3.0); Hemoglobin (Hb) 10.4 g/dL (12.0-16.0); O2 Tension (PaO2), arterial 93.7 mmHg (> 80.0); Potassium - ABG Lab 4.05 mmol/L (3.70-5.30); pH, Arterial 7.46 (7.35-7.45)
[2021-04-27 13:24] LABS: ALV-art Gradient 72.325 mmHg (0-20); Puncture Site RRA
[2021-04-27] MEDS ORDERED: VANCOMYCIN 1.25 GM/250 ML BAG 1.25 GM in Premix Bag 1 BAG IVPB SCH (15:00)
[2021-04-27] MEDS: Labetalol HCl 100 MG/20 ML VIAL SLOW IVP PRN (16:04)
[2021-04-27] MEDS: Morphine 10 MG/0.5 ML ORAL SYRINGE SL PRN (22:38)
[2021-04-28] MEDS: Labetalol HCl 100 MG/20 ML VIAL SLOW IVP PRN ×2 (03:09→08:01)
[2021-04-28] MEDS: Morphine 4 MG/ML VIAL SLOW IVP PRN ×3 (03:12→23:52)
[2021-04-28 04:39] LABS: ALT (SGPT) 65 U/L (8-55); AST (SGOT) 59 U/L (5-34); Albumin 3.1 g/dL (3.4-4.8); Alkaline Phosphatase 87 U/L (40-110); Anion Gap 11 mmol/L (10-20); BUN (Urea Nitrogen) 11 mg/dL (9.8-20.1); Bilirubin, Total 0.4 mg/dL (0.2-1.2); Calc. Creatinine Clearance 150 mL/min (70-130); Calcium 8.1 mg/dL (7.8-10.44); Carbon Dioxide 27 mmol/L (23-31); Chloride 109 mmol/L (98-107); Globulin 2.7 g/dL (2.4-3.5); Glucose 102 mg/dL (80-115); Magnesium 2.4 mg/dL (1.6-2.6); Potassium 3.3 mmol/L (3.5-5.1); Protein, Total 5.8 g/dL (5.8-8.1); Sodium 144 mmol/L (136-145)
[2021-04-28] MEDS: MEROPENEM 1 GM/50 ML 1 GM in Premix Bag 1 BAG IVPB SCH ×3 (05:23→20:22)
[2021-04-28 05:49] LABS: Eosinophils 5 % (0-10); Hemoglobin 9.8 g/dL (12.0-16.0); Lymphocytes 17 % (21-51); MDiff Complete? YES; Mean Corpuscular HGB CONC 32.5 g/dL (32.0-36.0); Mean Corpuscular Volume 86.2 fL (78.0-98.0); Mean Platelet Volume 8.4 fL (7.4-10.4); Monocytes 7 % (0-10); Neutrophil 71 % (42-75); Platelet Count 210 thou/uL (130-400); Platelet Morphology Comment Appears Adequate; RBC Distribution Width 15.2 % (11.5-14.5); RBC Morphology Normal; Red Blood Cell (RBC) Count 3.49 mill/uL (4.20-5.40); White Blood Cell (WBC) Count 7.5 thou/uL (4.8-10.8)
[2021-04-28] MEDS: Morphine 10 MG/0.5 ML ORAL SYRINGE SL PRN (06:52)
[2021-04-28] MEDS: Famotidine/PF 20 mg/2ml Vial SLOW IVP SCH ×2 (08:01→20:22)
[2021-04-28] MEDS: Nicotine 21 MG PATCH TD SCH (08:02)
[2021-04-28] MEDS: Lisinopril 10 MG TAB PO SCH (08:55)
[2021-04-28] MEDS: Aspirin Chewable 81 MG TAB PO SCH (08:55)
[2021-04-28] MEDS: Ondansetron ODT 4 MG TAB PO SCH ×3 (08:55→20:19)
[2021-04-28] MEDS: Carvedilol 6.25 MG TAB PO SCH ×2 (08:56→20:20)
[2021-04-28] MEDS ORDERED: Non-Formulary Item 1 EACH (Albuterol Sulfate [Proair Hfa] 8.5 GM Hfa.Aer.Ad) INH PRN (11:13)
[2021-04-28] MEDS ORDERED: [UNRECOGNIZED DRUG - OTHER] PO SCH (11:15)
[2021-04-28] MEDS ORDERED: LIPASE PO SCH (11:15)
[2021-04-28] MEDS ORDERED: AMYLASE PO SCH (11:15)
[2021-04-28] MEDS ORDERED: PROTEASE PO SCH (11:15)
[2021-04-28] MEDS ORDERED: Albuterol 200 PUFF (6.7GM INHALER) INH PRN (12:11)
[2021-04-28] MEDS: Pancrelipase DR 12,000 1 CAP PO SCH ×3 (12:35→20:23)
[2021-04-28] MEDS ORDERED: predniSONE 20 MG TAB PO SCH (13:00)
[2021-04-28] MEDS ORDERED: MORPHINE SULFATE 30 MG PO SCH (13:00)
[2021-04-28] MEDS: Sodium Chloride 0.9% 1,000 ML IV SCH ×2 (13:01→20:23)
[2021-04-28] MEDS: Morphine IR Tab 15 MG TAB PO SCH ×3 (14:51→20:19)
[2021-04-28] MEDS: Lorazepam 1 MG TAB PO SCH (20:19)
[2021-04-28] MEDS ORDERED: Citalopram 20 MG TAB PO SCH (21:00)
[2021-04-28] MEDS ORDERED: Lorazepam 1 MG TAB PO SCH (21:00)
[2021-04-28] MEDS: Lorazepam 2 MG/ML VIAL SLOW IVP PRN (23:53)
[2021-04-29] MEDS: Morphine 4 MG/ML VIAL SLOW IVP PRN ×2 (06:14→10:50)
[2021-04-29] MEDS: MEROPENEM 1 GM/50 ML 1 GM in Premix Bag 1 BAG IVPB SCH ×2 (06:15→14:17)
[2021-04-29] MEDS: Pancrelipase DR 12,000 1 CAP PO SCH ×3 (06:15→16:32)
[2021-04-29 06:37] LABS: Hemoglobin 9.9 g/dL (12.0-16.0); Mean Corpuscular HGB CONC 31.6 g/dL (32.0-36.0); Mean Corpuscular Hemoglobin 27.5 pg (27.0-31.0); Mean Corpuscular Volume 87.2 fL (78.0-98.0); Mean Platelet Volume 8.1 fL (7.4-10.4); Platelet Count 213 thou/uL (130-400); Red Blood Cell (RBC) Count 3.61 mill/uL (4.20-5.40)
[2021-04-29 06:56] LABS: Magnesium 2.3 mg/dL (1.6-2.6)
[2021-04-29 07:03] LABS: ALT (SGPT) 47 U/L (8-55); AST (SGOT) 28 U/L (5-34); Albumin 3.1 g/dL (3.4-4.8); Alkaline Phosphatase 83 U/L (40-110); Anion Gap 7 mmol/L (10-20); BUN (Urea Nitrogen) 6 mg/dL (9.8-20.1); Bilirubin, Total 0.3 mg/dL (0.2-1.2); Calc. Creatinine Clearance 146 mL/min (70-130); Calcium 8.1 mg/dL (7.8-10.44); Carbon Dioxide 30 mmol/L (23-31); Chloride 107 mmol/L (98-107); Globulin 2.8 g/dL (2.4-3.5); Glucose 107 mg/dL (80-115); Phosphorus 4.7 mg/dL (2.3-4.7); Potassium 3.6 mmol/L (3.5-5.1); Protein, Total 5.9 g/dL (5.8-8.1); Sodium 140 mmol/L (136-145)
[2021-04-29] MEDS: Carvedilol 6.25 MG TAB PO SCH (07:42)
[2021-04-29] MEDS: Aspirin Chewable 81 MG TAB PO SCH (07:42)
[2021-04-29] MEDS: Lorazepam 1 MG TAB PO SCH (07:42)
[2021-04-29] MEDS: Famotidine/PF 20 mg/2ml Vial SLOW IVP SCH (07:42)
[2021-04-29] MEDS: Ondansetron ODT 4 MG TAB PO SCH ×2 (07:42→15:25)
[2021-04-29] MEDS: Nicotine 21 MG PATCH TD SCH (07:43)
[2021-04-29] MEDS: Lisinopril 10 MG TAB PO SCH (07:43)
[2021-04-29] MEDS: Sodium Chloride 0.9% 1,000 ML IV SCH ×2 (07:45→11:07)
[2021-04-29] MEDS: Morphine IR Tab 15 MG TAB PO SCH ×3 (07:46→16:32)
[2021-04-29] MEDS ORDERED: predniSONE 20 MG TAB PO SCH (08:00)
[2021-04-29 08:13] LABS: Band 3 % (5-11); Eosinophils 1 % (0-10); Lymphocytes 18 % (21-51); MDiff Complete? YES; Monocytes 6 % (0-10); Neutrophil 72 % (42-75); Platelet Morphology Comment Appears Adequate; Polychromasia SLIGHT = 2-3 cells (100X) (0-2/hpf)
[2021-04-29 11:36] VITALS: BP 160/87; TEMP 98.8
[2021-04-29 12:04] VITALS: BMI 39.7
== END 2021-04-29 18:30 | disposition home or self-care (01) | DRG 871 ==
LOC: ERS 08:18 → CCU 11:26 → T4-A 04-28 10:36
PROVIDERS: ADMIT Internal Medicine; ATTEND Family Medicine
PROC: 5A1945Z Respiratory Ventilation, 24-96 Consecutive Hours (ICD-10-PCS; principal; 2021-04-24)
PROC: 06HY33Z Insertion of Infusion Device into Lower Vein, Percutaneous Approach (ICD-10-PCS; 2021-04-24)
PROC: 3E043XZ Introduction of Vasopressor into Central Vein, Percutaneous Approach (ICD-10-PCS; 2021-04-24)
PROC: 3E0G76Z Introduction of Nutritional Substance into Upper GI, Via Natural or Artificial Opening (ICD-10-PCS; 2021-04-29)
DX: A41.9 Sepsis, unspecified organism (principal); J96.21 Acute and chronic respiratory failure with hypoxia; J96.22 Acute and chronic respiratory failure with hypercapnia; Z66 Do not resuscitate; R65.21 Severe sepsis with septic shock; J15.9 Unspecified bacterial pneumonia; K86.1 Other chronic pancreatitis; J44.1 Chronic obstructive pulmonary disease with (acute) exacerbation; J44.0 Chronic obstructive pulmonary disease with (acute) lower respiratory infection; N17.9 Acute kidney failure, unspecified; F31.9 Bipolar disorder, unspecified; F17.210 Nicotine dependence, cigarettes, uncomplicated; I11.0 Hypertensive heart disease with heart failure; I50.9 Heart failure, unspecified; F41.9 Anxiety disorder, unspecified; E66.9 Obesity, unspecified; G89.4 Chronic pain syndrome; E87.5 Hyperkalemia; Z78.1 Physical restraint status; Z90.710 Acquired absence of both cervix and uterus; Z99.81 Dependence on supplemental oxygen; Z90.89 Acquired absence of other organs; Z68.39 Body mass index [BMI] 39.0-39.9, adult; Z98.51 Tubal ligation status; Z79.899 Other long term (current) drug therapy; Z79.82 Long term (current) use of aspirin; Z79.891 Long term (current) use of opiate analgesic
CPT/HCPCS: 36415; 36556; 36600; 70450; 71045; 71250; 80053; 80202; 82436; 82570; 82805; 83735; 84100; 84133; 84300; 85007; 85027; 87070; 87205; 94002; 94003; 94640; 96365; 96366; 96368; J1720; J2060; J2185; J2270; J2704; J3010; J3370; J3490; J7050; J7512; J7611; J7620; Q0162; S0028

== ENCOUNTER 2021-07-28 13:50 | Inpatient (IN) | payer MEDICARE ==
[2021-07-28] MEDS ORDERED: Fentanyl 100 MCG/2 ML VIAL ONE (14:02)
[2021-07-28] MEDS ORDERED: Lorazepam 2 MG/ML VIAL ONE (14:21)
[2021-07-28 14:48] LABS: Actual Bicarbonate (HCO3a) 35.4 mEq/L (22-28); Analyzer IN Cardio ER; Base Excess (BEa) 9.4 mEq/L (-2.0 to +3.0); CO2 Tension 52.7 mmHg (35.0-45.0); pH, Arterial 7.45 (7.35-7.45)
[2021-07-28 15:04] LABS: O2 Tension (PaO2), arterial 42.3 mmHg (> 80.0); Puncture Site LRA
[2021-07-28 15:05] LABS: ALV-art Gradient 248.325 mmHg (0-20)
[2021-07-28 15:06] LABS: #Lymphocytes 0.5 thou/uL (1.20-3.40); #Monocytes 0.3 thou/uL (0.11-0.59); #Neutrophils 10.6 thou/uL (1.40-6.50); %Basophils 0.1 % (0.0-1.0); %Eosinophils 0.1 % (0.0-10.0); %Lymphocytes 4.4 % (21.0-51.0); %Monocytes 2.6 % (0.0-10.0); %Neutrophils 92.8 % (42.0-75.0); Hemoglobin 10.3 g/dL (12.0-16.0); Mean Corpuscular Hemoglobin 28.6 pg (27.0-31.0); Mean Corpuscular Volume 92.4 fL (78.0-98.0); Mean Platelet Volume 7.8 fL (7.4-10.4); Platelet Count 300 thou/uL (130-400); RBC Distribution Width 13.4 % (11.5-14.5); Red Blood Cell (RBC) Count 3.61 mill/uL (4.20-5.40); White Blood Cell (WBC) Count 11.4 thou/uL (4.8-10.8)
[2021-07-28] MEDS ORDERED: Acetaminophen 325 MG TAB PO PRN (15:28)
[2021-07-28] MEDS ORDERED: Senokot S 8.6-50 MG TAB PO PRN (15:28)
[2021-07-28] MEDS ORDERED: Guaifenesin DM 100-10/5 ML UDCUP PO PRN (15:28)
[2021-07-28 15:30] LABS: ALT (SGPT) 30 U/L (8-55); AST (SGOT) 24 U/L (5-34); Albumin 3.4 g/dL (3.4-4.8); Alkaline Phosphatase 131 U/L (40-110); Anion Gap 20 mmol/L (10-20); BUN (Urea Nitrogen) 29 mg/dL (9.8-20.1); Bilirubin, Total 0.3 mg/dL (0.2-1.2); Calc. Creatinine Clearance 0 mL/min (70-130); Carbon Dioxide 30 mmol/L (23-31); Chloride 92 mmol/L (98-107); Globulin 3.5 g/dL (2.4-3.5); Glucose 174 mg/dL (80-115); Potassium 4.5 mmol/L (3.5-5.1); Protein, Total 6.9 g/dL (5.8-8.1); Sodium 137 mmol/L (136-145)
[2021-07-28 17:48] LABS: SARS-CoV-2 NAA Rapid Test Not Detected (NotDetected)
[2021-07-28 18:48] LABS: Troponin I 0.046 ng/mL (< 0.028)
[2021-07-28] MEDS ORDERED: Famotidine/PF 20 mg/2ml Vial SLOW IVP SCH (21:00)
[2021-07-28 21:30] LABS: Troponin I 0.059 ng/mL (< 0.028)
[2021-07-28] MEDS: Cefepime 1 GM in Sodium Chloride 0.9% 100 ML IVPB SCH (21:44)
[2021-07-29] MEDS: Propofol 1,000 MG/100 ML VIAL IV PRN ×3 (03:50→20:40)
[2021-07-29 04:11] LABS: #Lymphocytes 1.9 thou/uL (1.20-3.40); #Monocytes 1.1 thou/uL (0.11-0.59); #Neutrophils 11.6 thou/uL (1.40-6.50); %Eosinophils 0.3 % (0.0-10.0); %Lymphocytes 12.7 % (21.0-51.0); %Monocytes 7.3 % (0.0-10.0); %Neutrophils 79.7 % (42.0-75.0); Hemoglobin 10.2 g/dL (12.0-16.0); Mean Corpuscular HGB CONC 33.2 g/dL (32.0-36.0); Mean Corpuscular Hemoglobin 30.3 pg (27.0-31.0); Mean Corpuscular Volume 91.2 fL (78.0-98.0); Mean Platelet Volume 7.7 fL (7.4-10.4); Platelet Count 324 thou/uL (130-400); RBC Distribution Width 13.4 % (11.5-14.5); Red Blood Cell (RBC) Count 3.37 mill/uL (4.20-5.40); White Blood Cell (WBC) Count 14.5 thou/uL (4.8-10.8)
[2021-07-29 04:31] LABS: Bacteria/HPF None Seen HPF (None Seen); Bilirubin Negative (Negative); Blood, Urine 2+ (Negative); Clarity Turbid (Clear); Glucose, Urine (Dipstick) Normal (Negative); Ketone, Urine Negative (Negative); Leukocyte 25 Leu/uL (Negative); Nitrite Negative (Negative); Protein, Urine (Dipstick) 10 mg/dL (Neg-Trace); Specific Gravity, Urine 1.019 (1.002-1.036); Squamous Epithelial 0-3 HPF (0-3); Urobilinogen Normal mg/dL (Less than 2)
[2021-07-29 04:32] LABS: Anion Gap 32 mmol/L (10-20); BUN (Urea Nitrogen) 37 mg/dL (9.8-20.1); Calc. Creatinine Clearance 39 mL/min (70-130); Calcium 9.2 mg/dL (7.8-10.44); Carbon Dioxide 18 mmol/L (23-31); Chloride 90 mmol/L (98-107); Glucose 146 mg/dL (80-115); Potassium 3.9 mmol/L (3.5-5.1); Sodium 136 mmol/L (136-145)
[2021-07-29 04:33] LABS: Urine Culture Reflex Yes Yes
[2021-07-29] MEDS: Cefepime 1 GM in Sodium Chloride 0.9% 100 ML IVPB SCH (05:46)
[2021-07-29] MEDS: fentaNYL Citrate-0.9 % NaCl/PF 100 ML IV SCH ×2 (05:47→21:41)
[2021-07-29 07:21] LABS: Actual Bicarbonate (HCO3a) 35.2 mEq/L (22-28); Base Excess (BEa) 13.6 mEq/L (-2.0 to +3.0); CO2 Tension 33.9 mmHg (35.0-45.0); Calcium, Ionized (arterial) 1.06 mmol/L (1.12-1.30); O2 Tension (PaO2), arterial 84.9 mmHg (> 80.0); Potassium - ABG Lab 3.65 mmol/L (3.70-5.30)
[2021-07-29 07:22] LABS: Puncture Site RRA; pH, Arterial 7.63 (7.35-7.45)
[2021-07-29 07:23] LABS: ALV-art Gradient 371.825 mmHg (0-20)
[2021-07-29] MEDS ORDERED: Enoxaparin Sodium 40 MG/0.4 ML SYRINGE SC SCH (09:00)
[2021-07-29] MEDS: Ondansetron PF 4 MG/2 ML Vial IVP PRN (12:33)
[2021-07-29] MEDS ORDERED: Lorazepam 2 MG/ML VIAL ONE (12:33)
[2021-07-29] MEDS ORDERED: Morphine 4 MG/ML VIAL ONE (12:35)
[2021-07-29] MEDS ORDERED: Ventilator Sedation Protocol 1 EACH FS ONE (12:47)
[2021-07-29] MEDS ORDERED: Propofol BOLUS 1,000 MG/100 ML VIAL IV PRN (13:00)
[2021-07-29] MEDS ORDERED: Fentanyl BOLUS 250 ML IVPB PRN (13:00)
[2021-07-29] MEDS ORDERED: Propofol 1,000 MG/100 ML VIAL IV PRN (13:00)
[2021-07-29] MEDS: Sodium Chloride 0.9% 1,000 ML IV SCH (13:03)
[2021-07-29] MEDS: methylPREDNISolone Sod Succ 40 MG VIAL IVP SCH ×2 (13:45→21:33)
[2021-07-29] MEDS: cefTRIAXone\\ROCEPHIN 1 GM in Sodium Chloride 0.9% 100 ML IVPB SCH (17:28)
[2021-07-29] MEDS: Famotidine/PF 20 mg/2ml Vial SLOW IVP SCH (21:33)
[2021-07-29] MEDS: Lorazepam 2 MG/ML VIAL SLOW IVP PRN (23:37)
[2021-07-30] MEDS: Propofol 1,000 MG/100 ML VIAL IV PRN ×2 (04:23→09:14)
[2021-07-30] MEDS: Lorazepam 2 MG/ML VIAL SLOW IVP PRN ×3 (04:33→16:24)
[2021-07-30 05:04] LABS: #Lymphocytes 0.7 thou/uL (1.20-3.40); #Monocytes 0.3 thou/uL (0.11-0.59); #Neutrophils 7.6 thou/uL (1.40-6.50); %Basophils 0.2 % (0.0-1.0); %Lymphocytes 8.4 % (21.0-51.0); %Monocytes 3.7 % (0.0-10.0); %Neutrophils 87.6 % (42.0-75.0); Hemoglobin 9.1 g/dL (12.0-16.0); Mean Corpuscular HGB CONC 32.2 g/dL (32.0-36.0); Mean Corpuscular Hemoglobin 28.3 pg (27.0-31.0); Mean Corpuscular Volume 87.9 fL (78.0-98.0); Mean Platelet Volume 8.1 fL (7.4-10.4); Platelet Count 277 thou/uL (130-400); RBC Distribution Width 14.1 % (11.5-14.5); Red Blood Cell (RBC) Count 3.22 mill/uL (4.20-5.40); White Blood Cell (WBC) Count 8.6 thou/uL (4.8-10.8)
[2021-07-30 05:23] LABS: Anion Gap 15 mmol/L (10-20); BUN (Urea Nitrogen) 47 mg/dL (9.8-20.1); Calc. Creatinine Clearance 34 mL/min (70-130); Calcium 8.4 mg/dL (7.8-10.44); Carbon Dioxide 34 mmol/L (23-31); Chloride 94 mmol/L (98-107); Glucose 215 mg/dL (80-115); Potassium 4.2 mmol/L (3.5-5.1); Sodium 139 mmol/L (136-145)
[2021-07-30] MEDS ORDERED: Cefepime 1 GM in Sodium Chloride 0.9% 100 ML IVPB SCH (06:00)
[2021-07-30] MEDS: Sodium Chloride 0.9% 1,000 ML IV SCH (06:15)
[2021-07-30] MEDS: fentaNYL Citrate-0.9 % NaCl/PF 100 ML IV SCH (06:16)
[2021-07-30] MEDS: methylPREDNISolone Sod Succ 40 MG VIAL IVP SCH ×3 (06:29→21:08)
[2021-07-30 07:37] LABS: Actual Bicarbonate (HCO3a) 30.1 mEq/L (22-28); Base Excess (BEa) 5.6 mEq/L (-2.0 to +3.0); Calcium, Ionized (arterial) 1.09 mmol/L (1.12-1.30); O2 Tension (PaO2), arterial 114.8 mmHg (> 80.0); Potassium - ABG Lab 3.93 mmol/L (3.70-5.30); Puncture Site LRA; pH, Arterial 7.46 (7.35-7.45)
[2021-07-30] MEDS: Enoxaparin Sodium 30 MG/0.3 ML SYRINGE SC SCH (09:13)
[2021-07-30] MEDS ORDERED: Lorazepam 1 MG TAB PO SCH (11:15)
[2021-07-30] MEDS: Pancrelipase DR 12,000 1 CAP PO SCH ×2 (11:22→16:32)
[2021-07-30] MEDS: Azithromycin 500 MG in Sodium Chloride 0.9% 250 ML 250 ML IVPB SCH (11:50)
[2021-07-30] MEDS: Ondansetron PF 4 MG/2 ML Vial IVP PRN (15:39)
[2021-07-30] MEDS: cefTRIAXone\\ROCEPHIN 1 GM in Sodium Chloride 0.9% 100 ML IVPB SCH (16:32)
[2021-07-30] MEDS ORDERED: fentaNYL Citrate/PF 2,000 MCG in Sodium Chloride 0.9% 60 ML IV SCH (18:45)
[2021-07-30] MEDS: Mometasone 200 MCG/Formoterol 5 MCG 120 PUFF INHALER INH SCH (18:59)
[2021-07-30] MEDS: Famotidine/PF 20 mg/2ml Vial SLOW IVP SCH (21:08)
[2021-07-30] MEDS: Lorazepam 1 MG TAB PO SCH (21:08)
[2021-07-31] MEDS ORDERED: Morphine 4 MG/ML VIAL SLOW IVP PRN (05:00)
[2021-07-31] MEDS: Sodium Chloride 0.9% 1,000 ML IV SCH (05:37)
[2021-07-31] MEDS: Ondansetron PF 4 MG/2 ML Vial IVP PRN ×2 (05:37→19:46)
[2021-07-31] MEDS: methylPREDNISolone Sod Succ 40 MG VIAL IVP SCH ×3 (05:38→21:00)
[2021-07-31 05:43] LABS: #Lymphocytes 0.8 thou/uL (1.20-3.40); #Monocytes 0.5 thou/uL (0.11-0.59); #Neutrophils 7.2 thou/uL (1.40-6.50); %Basophils 0.1 % (0.0-1.0); %Eosinophils 0.2 % (0.0-10.0); %Lymphocytes 9.6 % (21.0-51.0); %Neutrophils 84.1 % (42.0-75.0); Hemoglobin 9.2 g/dL (12.0-16.0); Mean Corpuscular Hemoglobin 28.1 pg (27.0-31.0); Mean Corpuscular Volume 87.8 fL (78.0-98.0); Mean Platelet Volume 8.2 fL (7.4-10.4); Platelet Count 287 thou/uL (130-400); RBC Distribution Width 14.4 % (11.5-14.5); Red Blood Cell (RBC) Count 3.27 mill/uL (4.20-5.40); White Blood Cell (WBC) Count 8.5 thou/uL (4.8-10.8)
[2021-07-31 06:24] LABS: Anion Gap 10 mmol/L (10-20); BUN (Urea Nitrogen) 45 mg/dL (9.8-20.1); Calc. Creatinine Clearance 42 mL/min (70-130); Calcium 8.3 mg/dL (7.8-10.44); Carbon Dioxide 34 mmol/L (23-31); Chloride 98 mmol/L (98-107); Glucose 217 mg/dL (80-115); Magnesium 2.9 mg/dL (1.6-2.6); Potassium 4.4 mmol/L (3.5-5.1); Sodium 138 mmol/L (136-145)
[2021-07-31] MEDS: Mometasone 200 MCG/Formoterol 5 MCG 120 PUFF INHALER INH SCH ×2 (06:43→19:08)
[2021-07-31] MEDS: Lorazepam 2 MG/ML VIAL SLOW IVP PRN (08:03)
[2021-07-31] MEDS: Lorazepam 1 MG TAB PO SCH ×2 (08:29→20:57)
[2021-07-31] MEDS ORDERED: hydrALAZINE 20 MG/ML VIAL SLOW IVP PRN (09:01)
[2021-07-31] MEDS ORDERED: Labetalol HCl 100 MG/20 ML VIAL SLOW IVP PRN (09:02)
[2021-07-31] MEDS ORDERED: hydrALAZINE 20 MG/ML VIAL ONE (09:04)
[2021-07-31] MEDS ORDERED: Furosemide 40 MG/4 ML VIAL ONE (09:05)
[2021-07-31] MEDS: Enoxaparin Sodium 30 MG/0.3 ML SYRINGE SC SCH (09:09)
[2021-07-31] MEDS ORDERED: Furosemide 40 MG/4 ML VIAL SLOW IVP SCH (09:15)
[2021-07-31] MEDS: Pancrelipase DR 12,000 1 CAP PO SCH ×2 (09:41→16:38)
[2021-07-31] MEDS ORDERED: Carvedilol 25 MG TAB PO SCH ×2 (09:45→17:00)
[2021-07-31] MEDS ORDERED: Amlodipine 10 MG TAB PO SCH (09:45)
[2021-07-31] MEDS: Azithromycin 500 MG in Sodium Chloride 0.9% 250 ML 250 ML IVPB SCH (11:08)
[2021-07-31 13:05] VITALS: BMI 38.9
[2021-07-31] MEDS: cefTRIAXone\\ROCEPHIN 1 GM in Sodium Chloride 0.9% 100 ML IVPB SCH (17:10)
[2021-07-31] MEDS: Fentanyl 100 MCG/2 ML VIAL SLOW IVP PRN (19:47)
[2021-07-31] MEDS: Famotidine/PF 20 mg/2ml Vial SLOW IVP SCH (20:56)
[2021-07-31] MEDS: Carvedilol 25 MG TAB PO SCH (20:57)
[2021-08-01] MEDS: Fentanyl 100 MCG/2 ML VIAL SLOW IVP PRN ×4 (00:06→12:15)
[2021-08-01] MEDS: Sodium Chloride 0.9% 1,000 ML IV SCH ×2 (02:43→21:00)
[2021-08-01 05:28] LABS: #Lymphocytes 0.7 thou/uL (1.20-3.40); #Monocytes 0.4 thou/uL (0.11-0.59); %Basophils 0.2 % (0.0-1.0); %Eosinophils 0.2 % (0.0-10.0); %Lymphocytes 10.3 % (21.0-51.0); %Monocytes 4.9 % (0.0-10.0); %Neutrophils 84.4 % (42.0-75.0); Hemoglobin 9.2 g/dL (12.0-16.0); Mean Corpuscular HGB CONC 31.8 g/dL (32.0-36.0); Mean Corpuscular Hemoglobin 27.8 pg (27.0-31.0); Mean Corpuscular Volume 87.6 fL (78.0-98.0); Mean Platelet Volume 8.3 fL (7.4-10.4); Platelet Count 287 thou/uL (130-400); RBC Distribution Width 14.2 % (11.5-14.5); Red Blood Cell (RBC) Count 3.32 mill/uL (4.20-5.40); White Blood Cell (WBC) Count 7.1 thou/uL (4.8-10.8)
[2021-08-01 05:45] LABS: Anion Gap 9 mmol/L (10-20); BUN (Urea Nitrogen) 46 mg/dL (9.8-20.1); Calc. Creatinine Clearance 47 mL/min (70-130); Calcium 8.3 mg/dL (7.8-10.44); Carbon Dioxide 33 mmol/L (23-31); Chloride 101 mmol/L (98-107); Glucose 163 mg/dL (80-115); Magnesium 2.7 mg/dL (1.6-2.6); Potassium 4.2 mmol/L (3.5-5.1); Sodium 139 mmol/L (136-145)
[2021-08-01] MEDS: methylPREDNISolone Sod Succ 40 MG VIAL IVP SCH ×3 (06:04→23:23)
[2021-08-01] MEDS: Lorazepam 1 MG TAB PO SCH ×2 (07:54→22:34)
[2021-08-01] MEDS: Enoxaparin Sodium 30 MG/0.3 ML SYRINGE SC SCH (07:54)
[2021-08-01] MEDS: Carvedilol 25 MG TAB PO SCH ×2 (07:54→20:45)
[2021-08-01] MEDS: Pancrelipase DR 12,000 1 CAP PO SCH ×3 (07:54→15:37)
[2021-08-01] MEDS: Amlodipine 10 MG TAB PO SCH (07:57)
[2021-08-01] MEDS: Mometasone 200 MCG/Formoterol 5 MCG 120 PUFF INHALER INH SCH ×2 (08:39→21:19)
[2021-08-01] MEDS ORDERED: Amlodipine 10 MG TAB PO SCH (09:00)
[2021-08-01] MEDS ORDERED: methylPREDNISolone Sod Succ 40 MG VIAL IVP SCH (11:00)
[2021-08-01] MEDS: Azithromycin 500 MG in Sodium Chloride 0.9% 250 ML 250 ML IVPB SCH (13:46)
[2021-08-01] MEDS: Ondansetron PF 4 MG/2 ML Vial IVP PRN (13:52)
[2021-08-01] MEDS: Morphine IR Tab 15 MG TAB PO SCH ×3 (13:52→20:46)
[2021-08-01] MEDS: cefTRIAXone\\ROCEPHIN 1 GM in Sodium Chloride 0.9% 100 ML IVPB SCH (15:37)
[2021-08-01] MEDS ORDERED: Famotidine 20 MG TAB PO SCH (21:00)
[2021-08-02] MEDS ORDERED: Lidocaine 2% Viscous Solution 20 ML, Aluminum & Magnesium Hydroxide 30 ML, Donnatal Eli... SSW SCH (03:30)
[2021-08-02] MEDS: methylPREDNISolone Sod Succ 40 MG VIAL IVP SCH (06:12)
[2021-08-02 06:31] LABS: #Eosinphils 0.1 thou/uL (0.0-0.7); #Monocytes 0.6 thou/uL (0.11-0.59); #Neutrophils 7.3 thou/uL (1.40-6.50); %Basophils 0.2 % (0.0-1.0); %Eosinophils 1.4 % (0.0-10.0); %Lymphocytes 11.3 % (21.0-51.0); %Monocytes 6.5 % (0.0-10.0); %Neutrophils 80.5 % (42.0-75.0); Hemoglobin 9.1 g/dL (12.0-16.0); Mean Corpuscular HGB CONC 31.5 g/dL (32.0-36.0); Mean Corpuscular Hemoglobin 27.7 pg (27.0-31.0); Mean Platelet Volume 8.6 fL (7.4-10.4); Platelet Count 289 thou/uL (130-400); RBC Distribution Width 14.2 % (11.5-14.5); Red Blood Cell (RBC) Count 3.29 mill/uL (4.20-5.40)
[2021-08-02 06:45] LABS: Anion Gap 12 mmol/L (10-20); BUN (Urea Nitrogen) 35 mg/dL (9.8-20.1); Calc. Creatinine Clearance 54 mL/min (70-130); Carbon Dioxide 27 mmol/L (23-31); Chloride 98 mmol/L (98-107); Glucose 167 mg/dL (80-115); Magnesium 2.4 mg/dL (1.6-2.6); Potassium 4.2 mmol/L (3.5-5.1); Sodium 133 mmol/L (136-145)
[2021-08-02] MEDS: Mometasone 200 MCG/Formoterol 5 MCG 120 PUFF INHALER INH SCH (08:03)
[2021-08-02] MEDS: Pancrelipase DR 12,000 1 CAP PO SCH ×3 (08:30→17:09)
[2021-08-02] MEDS: Lorazepam 1 MG TAB PO SCH (08:30)
[2021-08-02] MEDS: Amlodipine 10 MG TAB PO SCH (08:30)
[2021-08-02] MEDS: Morphine IR Tab 15 MG TAB PO SCH ×3 (08:31→17:09)
[2021-08-02] MEDS: Carvedilol 25 MG TAB PO SCH (08:31)
[2021-08-02] MEDS ORDERED: Enoxaparin Sodium 40 MG/0.4 ML SYRINGE SC SCH (09:00)
[2021-08-02 09:11] VITALS: TEMP 98.2
[2021-08-02] MEDS ORDERED: Cefdinir 300 MG CAP PO SCH ×2 (10:00→21:00)
[2021-08-02] MEDS ORDERED: predniSONE 20 MG TAB PO SCH (10:00)
[2021-08-02] MEDS ORDERED: Azithromycin 250 MG TAB PO SCH (16:15)
[2021-08-02] MEDS ORDERED: Ondansetron ODT 4 MG TAB PO PRN (16:29)
[2021-08-02 18:36] VITALS: BP 179/93
[2021-08-03] MEDS ORDERED: Azithromycin 200 MG/5 ML Oral Suspension PO SCH (09:00)
[2021-08-03] MEDS ORDERED: Azithromycin 250 MG TAB PO SCH (09:00)
== END 2021-08-02 17:43 | disposition home or self-care (01) | DRG 208 ==
LOC: ERS 13:50 → CCU 13:59 → IMCU/EMU 08-01 09:44 → T4-A 08-01 18:09
PROVIDERS: ADMIT Hospitalist; ATTEND Internal Medicine
PROC: 5A1945Z Respiratory Ventilation, 24-96 Consecutive Hours (ICD-10-PCS; principal; 2021-07-28)
PROC: 0D9670Z Drainage of Stomach with Drainage Device, Via Natural or Artificial Opening (ICD-10-PCS; 2021-07-28)
PROC: 02HV33Z Insertion of Infusion Device into Superior Vena Cava, Percutaneous Approach (ICD-10-PCS; 2021-07-28)
PROC: B548ZZA Ultrasonography of Superior Vena Cava, Guidance (ICD-10-PCS; 2021-07-28)
PROC: 5A09357 Assistance with Respiratory Ventilation, Less than 24 Consecutive Hours, Continuous Positive Airway Pressure (ICD-10-PCS; 2021-07-31)
DX: J96.21 Acute and chronic respiratory failure with hypoxia (principal); G93.41 Metabolic encephalopathy; J44.1 Chronic obstructive pulmonary disease with (acute) exacerbation; N17.9 Acute kidney failure, unspecified; K86.1 Other chronic pancreatitis; E87.1 Hypo-osmolality and hyponatremia; J98.11 Atelectasis; J96.22 Acute and chronic respiratory failure with hypercapnia; Z20.822 Contact with and (suspected) exposure to COVID-19; I50.9 Heart failure, unspecified; I11.0 Hypertensive heart disease with heart failure; E87.5 Hyperkalemia; G89.4 Chronic pain syndrome; F31.9 Bipolar disorder, unspecified; F17.210 Nicotine dependence, cigarettes, uncomplicated; K21.9 Gastro-esophageal reflux disease without esophagitis; K86.89 Other specified diseases of pancreas; E66.9 Obesity, unspecified; D64.9 Anemia, unspecified; Z68.39 Body mass index [BMI] 39.0-39.9, adult; Z78.1 Physical restraint status; Z99.81 Dependence on supplemental oxygen; Z98.51 Tubal ligation status; Z88.1 Allergy status to other antibiotic agents; Z88.2 Allergy status to sulfonamides; Z88.8 Allergy status to other drugs, medicaments and biological substances; Z87.19 Personal history of other diseases of the digestive system; Z90.49 Acquired absence of other specified parts of digestive tract; Z90.710 Acquired absence of both cervix and uterus; Z90.89 Acquired absence of other organs; Z79.899 Other long term (current) drug therapy; Z79.52 Long term (current) use of systemic steroids; Z79.82 Long term (current) use of aspirin; Z79.891 Long term (current) use of opiate analgesic; Z88.5 Allergy status to narcotic agent; Z91.041 Radiographic dye allergy status
CPT/HCPCS: 36415; 36556; 36600; 71045; 71250; 80048; 81001; 82805; 83735; 83880; 84145; 85025; 85379; 87040; 87070; 87086; 87205; 93005; 94002; 94003; 94640; 94660; 96365; 96366; 96375; 99292; J0360; J0456; J0692; J0696; J1650; J1940; J2060; J2270; J2405; J2704; J2920; J3010; J3490; J7050; J7512; J7620; Q0162; S0028; U0002

== ENCOUNTER 2022-01-09 14:00 | Emergency (ER) | payer MEDICARE ==
[2022-01-09] MEDS ORDERED: Lorazepam (BATCHED) 2 MG/ML SYR ONE (15:22)
[2022-01-09] MEDS ORDERED: Morphine 4 MG/ML VIAL ONE (16:29)
[2022-01-09] MEDS ORDERED: Ondansetron ODT 4 MG TAB ONE (18:48)
== END 2022-01-09 19:11 | disposition home or self-care (01) ==
LOC: ERS 14:00
DX: M48.56XA Collapsed vertebra, not elsewhere classified, lumbar region, initial encounter for fracture (principal); M62.830 Muscle spasm of back; I11.0 Hypertensive heart disease with heart failure; I50.9 Heart failure, unspecified; E66.9 Obesity, unspecified; J44.9 Chronic obstructive pulmonary disease, unspecified; F17.210 Nicotine dependence, cigarettes, uncomplicated
CPT/HCPCS: 72148; J2060; 96374; 96375; J2270; Q0162

== ENCOUNTER 2023-01-20 08:33 | Day surgery (SDC) | payer MEDICARE, OTHER ==
[2023-01-19 10:42] VITALS: BMI 28.5
[2023-01-20] MEDS ORDERED: fentaNYL 50 mcg/mL 1 mL Vial ONE (09:50)
[2023-01-20] MEDS ORDERED: Ondansetron PF 4 MG/2 ML Vial ONE (09:50)
[2023-01-20] MEDS ORDERED: Lidocaine 1% PF 5 ML VIAL ONE (11:40)
[2023-01-20] MEDS ORDERED: PROPOFOL 200 MG/20 ML VIAL ONE (11:40)
[2023-01-20] MEDS ORDERED: Morphine 2 MG/ML VIAL ONE (12:05)
== END 2023-01-20 13:21 | disposition home or self-care (01) ==
LOC: SDC 08:33
PROVIDERS: ATTEND Internal Medicine Gastroenterology
PROC: 0DJ08ZZ Inspection of Upper Intestinal Tract, Via Natural or Artificial Opening Endoscopic (ICD-10-PCS; principal; 2023-01-20)
DX: K74.60 Unspecified cirrhosis of liver (principal); R10.13 Epigastric pain; K29.60 Other gastritis without bleeding; K21.9 Gastro-esophageal reflux disease without esophagitis; I11.0 Hypertensive heart disease with heart failure; I50.9 Heart failure, unspecified; F17.210 Nicotine dependence, cigarettes, uncomplicated; F32.A Depression, unspecified; Z79.82 Long term (current) use of aspirin; Z79.899 Other long term (current) drug therapy; Z90.710 Acquired absence of both cervix and uterus; Z88.2 Allergy status to sulfonamides; Z90.49 Acquired absence of other specified parts of digestive tract
CPT/HCPCS: 43235; J3010; J2272; J2405; J2704

== ENCOUNTER 2023-01-23 22:16 | Observation (INO) | payer MEDICARE ==
[2023-01-23] MEDS ORDERED: Morphine 4 MG/ML VIAL SLOW IVP SCH (23:45)
[2023-01-24] MEDS ORDERED: Ondansetron PF 4 MG/2 ML Vial IVP SCH (00:45)
[2023-01-24] MEDS ORDERED: hydrALAZINE 20 MG/ML VIAL SLOW IVP PRN (01:10)
[2023-01-24] MEDS ORDERED: Pantoprazole 40 MG VIAL IVP SCH (01:15)
[2023-01-24] MEDS: Morphine 2 MG/ML VIAL SLOW IVP PRN ×8 (01:26→20:01)
[2023-01-24 02:03] VITALS: BMI 28.4
[2023-01-24] MEDS ORDERED: methylPREDNISolone Sod Succ/PF 125 MG/2 ML VIAL IVP SCH ×2 (02:18→02:30)
[2023-01-24] MEDS ORDERED: LIPASE PO PRN (02:41)
[2023-01-24] MEDS ORDERED: PROTEASE PO PRN (02:41)
[2023-01-24] MEDS ORDERED: AMYLASE PO PRN (02:41)
[2023-01-24 02:42] LABS: #Monocytes 0.1 thou/uL (0.11-0.59); #Neutrophils 5.6 thou/uL (1.40-6.50); %Basophils 0.2 % (0.0-1.0); %Lymphocytes 10.1 % (21.0-51.0); %Monocytes 1.7 % (0.0-10.0); %Neutrophils 87.5 % (42.0-75.0); Hematocrit 35.6 % (36.0-47.0); Hemoglobin 11.5 g/dL (12.0-16.0); Mean Corpuscular HGB CONC 32.3 g/dL (32.0-36.0); Mean Corpuscular Hemoglobin 28.5 pg (27.0-31.0); Mean Corpuscular Volume 88.3 fl (78.0-98.0); Mean Platelet Volume 10.1 fL (7.4-10.4); Platelet Count 266 10x3/uL (130-400); RBC Distribution Width 13.7 % (11.5-14.5); Red Blood Cell (RBC) Count 4.03 mill/uL (4.20-5.40); White Blood Cell (WBC) Count 6.4 10x3/uL (4.8-10.8)
[2023-01-24] MEDS ORDERED: METHYLPREDNISOLONE SOD SUCC IVPB SCH (02:45)
[2023-01-24] MEDS ORDERED: SODIUM CHLORIDE 0.9% IVPB SCH (02:45)
[2023-01-24] MEDS ORDERED: Lisinopril 10 MG TAB PO SCH ×2 (02:45→21:00)
[2023-01-24 03:02] LABS: Anion Gap 11 mmol/L (10-20); BUN (Urea Nitrogen) 7 mg/dL (9.8-20.1); Calc. Creatinine Clearance 85 mL/min (70-130); Carbon Dioxide 25 mmol/L (23-31); Chloride 102 mmol/L (98-107); Estimated GFR 89; Glucose 176 mg/dL (83-110); Potassium 4.3 mmol/L (3.5-5.1); Sodium 134 mmol/L (136-145)
[2023-01-24] MEDS ORDERED: Acetaminophen 325 MG TAB PO PRN (03:20)
[2023-01-24] MEDS ORDERED: Ondansetron ODT 4 MG TAB PO PRN (03:20)
[2023-01-24] MEDS: Ondansetron PF 4 MG/2 ML Vial IVP PRN ×3 (03:43→17:00)
[2023-01-24] MEDS ORDERED: Ipratropium/Albuterol 3 ML NEB NEB PRN (05:25)
[2023-01-24] MEDS: Promethazine HCl 12.5 MG in Sodium Chloride 0.9% 50 ML IVPB PRN ×3 (06:25→20:48)
[2023-01-24] MEDS: Ipratropium/Albuterol 3 ML NEB NEB SCH ×4 (06:25→18:43)
[2023-01-24] MEDS ORDERED: LIPASE PO SCH (08:00)
[2023-01-24] MEDS ORDERED: PROTEASE PO SCH (08:00)
[2023-01-24] MEDS ORDERED: AMYLASE PO SCH (08:00)
[2023-01-24] MEDS: Pantoprazole 40 MG VIAL IVP SCH (08:54)
[2023-01-24] MEDS: Acetaminophen 650 MG Suppository PR PRN ×2 (10:34→18:01)
[2023-01-24] MEDS ORDERED: Amlodipine 5 MG TAB PO SCH (17:00)
[2023-01-24] MEDS: Mometasone/Formoterol 60 PUFF AER INH SCH (18:49)
[2023-01-24] MEDS ORDERED: Lorazepam 2 MG/ML VIAL SLOW IVP SCH (21:00)
[2023-01-24] MEDS: Lorazepam 1 MG TAB PO SCH (22:08)
[2023-01-25] MEDS: Ondansetron PF 4 MG/2 ML Vial IVP PRN ×2 (00:27→07:30)
[2023-01-25] MEDS: Morphine 2 MG/ML VIAL SLOW IVP PRN ×3 (00:27→08:08)
[2023-01-25] MEDS: Acetaminophen 650 MG Suppository PR PRN (00:49)
[2023-01-25] MEDS: Promethazine HCl 12.5 MG in Sodium Chloride 0.9% 50 ML IVPB PRN (04:47)
[2023-01-25] MEDS: Mometasone/Formoterol 60 PUFF AER INH SCH (07:17)
[2023-01-25] MEDS: Ipratropium/Albuterol 3 ML NEB NEB SCH ×2 (07:21→10:39)
[2023-01-25] MEDS: Lorazepam 1 MG TAB PO SCH (08:13)
[2023-01-25] MEDS: Pantoprazole 40 MG VIAL IVP SCH (08:14)
[2023-01-25] MEDS ORDERED: Citalopram 20 MG TAB PO SCH (09:00)
[2023-01-25] MEDS ORDERED: Amlodipine 5 MG TAB PO SCH (09:00)
[2023-01-25] MEDS ORDERED: Fioricet 325/50/40 mg Tablet PO ONE (10:54)
[2023-01-27 00:17] VITALS: BP 157/83; TEMP 98.3
== END 2023-01-25 12:39 | disposition home or self-care (01) ==
LOC: 2SE 23:20
PROVIDERS: ADMIT Student in an Organized Health Care Education/Training Program; ATTEND Internal Medicine
DX: R51.9 Headache, unspecified (principal); D64.9 Anemia, unspecified; F41.8 Other specified anxiety disorders; K21.9 Gastro-esophageal reflux disease without esophagitis; J44.9 Chronic obstructive pulmonary disease, unspecified; I11.0 Hypertensive heart disease with heart failure; I50.9 Heart failure, unspecified; Z88.2 Allergy status to sulfonamides; Z79.82 Long term (current) use of aspirin; Z79.899 Other long term (current) drug therapy; Z90.89 Acquired absence of other organs
CPT/HCPCS: 80048; 85025; 85652; 94640 ×5; 96374; 96375; 96376 ×2; G0378 ×2; J0360; 36415; C9113; J2060; J2270; J2272; J2405; J2550; J2930; J7050; J7620